=== PATIENT | female | born 1965 | race Caucasian/White ===

== ENCOUNTER → 2016-10-25 | Outpatient (CLI) | payer OTHER ==
--- NOTE | 2016-10-25 21:47 | MR ---
Brain MRI with and without contrast HISTORY: Breast cancer, headaches Multiplanar multisequence and postcontrast images through the brain following 20 cc MultiHance IV Correlation to prior MRI brain October There is no restricted diffusion to suggest subacute ischemia Corpus callosum, pituitary, cervical medullary junction, cerebellopontine angles are unremarkable. Th ere is no hemorrhage or hydrocephalus. No evident mass. No abnormal enhancement. Scattered hyperinten sities on inversion recovery and T2-weighted sequences are again noted in a similar distribution to p rior exam involving the deep and subcortical white matter. Orbits show symmetric appearance. Inflamma tory change present in the ethmoid air cells and maxillary sinus. IMPRESSION: Extensive white matter demyelination is stable. No enhancing mass to suggest metastatic d isease. Sinus disease.
== END | disposition home or self-care (01) ==
LOC: RADMRIMAIN 20:39
PROVIDERS: ATTEND Internal Medicine Hematology & Oncology
DX: C50.112 Malignant neoplasm of central portion of left female breast (principal); R51 Headache
CPT/HCPCS: 70553; A9577

== ENCOUNTER → 2017-02-20 | Outpatient (CLI) | payer OTHER ==
--- NOTE | 2017-02-20 20:33 | US ---
EXAMINATION TYPE: US abdomen complete DATE OF EXAM: 02/20/2017 COMPARISON: CT January 25, 2016 CLINICAL HISTORY: R10.11 Right upper quadrant pain. EXAM MEASUREMENTS: Liver Length: 19.2 cm Gallbladder Wall: 0.24 cm CBD: 0.40 cm Spleen: 8.7 cm Right Kidney: 10.4x 4.7 cm Left Kidney: 9.2 x 5.6 x 5.2 cm Pancreas: Tail obscured by overlying bowel gas Liver: Solid mass visualized measuring 5.7 x 4.9 x 7.0 cm. This mass is subcapsular in position an d located anteriorly within the right hepatic lobe. Gallbladder: Echogenic foci visualized. Evidence for sonographic Vazquez's sign: No CBD: wnl Spleen: wnl Right Kidney: No hydronephrosis or masses seen Left Kidney: No hydronephrosis or masses seen Upper IVC: wnl Abd Aorta: wnl IMPRESSION: ABNORMAL FINDING: LARGE SOLID LIVER MASS MEASURING 7.0 X 5.7 X 4.9 CM, WOULD ADVISE FURTHER IMAGING C HARACTERIZATION USING CT, MRI OR PET/CT.
== END ==
LOC: RADUSMAIN 16:41
PROVIDERS: ATTEND Internal Medicine Hematology & Oncology
DX: R16.0 Hepatomegaly, not elsewhere classified (principal)
CPT/HCPCS: 76700

== ENCOUNTER → 2017-04-26 | Outpatient (CLI) | payer OTHER ==
--- NOTE | 2017-04-26 15:43 | US ---
EXAMINATION TYPE: US venous doppler duplex LE LT DATE OF EXAM: 04/26/2017 3:31 PM COMPARISON: NONE CLINICAL HISTORY: Left Leg Swelling R22.42. Red spot on medial left ankle, h/o dvt in left leg 30 yea rs ago, met breast CA patient SIDE PERFORMED: Left TECHNIQUE: The lower extremity deep venous system is examined utilizing real time linear array sonog nilsa with graded compression, doppler sonography and color-flow sonography. VESSELS IMAGED: External Iliac Vein (EIV) Common Femoral Vein Deep Femoral Vein Greater Saphenous Vein * Femoral Vein Popliteal Vein Small Saphenous Vein * Proximal Calf Veins (* superficial vessels) Grayscale, color doppler, spectral doppler imaging performed of the deep veins of the lower extremit y. There is normal flow, compressibility, vascular waveforms. Left Leg: Appears negative for DVT *tech impression given to office @ 1338 IMPRESSION:
== END | disposition home or self-care (01) ==
LOC: RADUSWWP 14:59
PROVIDERS: ATTEND Internal Medicine Hematology & Oncology
DX: R22.42 Localized swelling, mass and lump, left lower limb (principal)

== ENCOUNTER → 2017-05-04 | Outpatient (CLI) | payer OTHER ==
--- NOTE | 2017-05-04 15:16 | BD ---
EXAMINATION TYPE: MG DEXA axial skeleton. DATE OF EXAM: 05/04/2017 CLINICAL HISTORY: History of breast cancer. Screening. Height: 66 inches Weight: 225 pounds FRAX RISK QUESTIONS: Alcohol (3 or more units per day): no Family History (Parent hip fracture): no Glucocorticoids (More than 3mos): no (Ex: prednisone, prednisolone, methylprednisolone, dexamethasone, and hydrocortisone). History of Fracture in Adulthood: no Secondary Osteoporosis: 1. Type 1 Diabetes: no 2. Hyperthyroidism: no 3. Menopause before 45: no, 45-chemo induced 4. Malnutrition: no 5. Chronic liver disease: no Rheumatoid Arthritis: no Current Tobacco Use: no RISK FACTORS HISTORY OF: Family History of Osteoporosis: yes Active: yes Diet low in dairy products/other sources of calcium: no Postmenopausal woman: yes Take estrogen and/or progesterone medications: not now How long: hormonal contraceptives for at least 10 years Lost more than 2 inches in height since high school: no Frequent falls: no Poor Health: somewhat Hyperparathyroidism: no Adrenal Insufficiency: no MEDICATIONS: Prednisone or other steroids: no Thyroid Medications: no Osteoporosis Medications: no Additional Medications: blood pressure meds Since 2010 took Tamoxifen, then Femara, then Ibrance, no w Afinitor Additional History: breast CA Jul 2010/chemo/radiation; mets to liver & had surgery EXAM MEASUREMENTS: Bone mineral densitometry was performed using the [employer] System. Bone mineral density as measured about the Lumbar spine is: ----- L1-L4(G/cm2): 0.977 T Score Values are as follows: ----- L2: -2.3 ----- L3: -1.9 ----- L4: -1.6 ----- L1-L4: -1.7 Bone mineral density has: Decreased -1.2% since study of: 09/16/2014 Bone mineral density about the R hip (g/cm2): 0.770 Bone mineral density about the L hip (g/cm2): 0.772 T Score values are as follows: -----R Neck: -1.9 -----L Neck: -1.9 -----R Total: -1.4 -----L Total: -1.4 Bone mineral density has: Increased 0.4% since study of: 09/16/2014 IMPRESSION: Osteopenia (T Score between -2.5 and -1) as noted by T score values There is slightly increased risk of fracture and the patient may be considered for treatment. Re-Screen 2-5 years. NOTE: T-SCORE=SD OF THE YOUNG ADULT MEAN.
== END | disposition home or self-care (01) ==
LOC: RADBDWWP 12:41
PROVIDERS: ATTEND Internal Medicine Hematology & Oncology
DX: C50.112 Malignant neoplasm of central portion of left female breast (principal); M85.80 Other specified disorders of bone density and structure, unspecified site; N95.1 Menopausal and female climacteric states; Z79.890 Hormone replacement therapy
CPT/HCPCS: 77080

== ENCOUNTER 2017-09-06 18:24 | Emergency (ER) | payer OTHER ==
[2017-09-06 18:47] VITALS: RESP 18
--- NOTE | 2017-09-06 19:02 | ED ---
Fall HPI - General Chief Complaint: Fall Stated Complaint: left arm injury from fall Time Seen by Provider: 09/06/17 18:50 Source: patient Mode of arrival: ambulatory - History of Present Illness Initial Comments: This is a 52 year old female who presents with a fall earlier today. The patient states she was walking into [employer] and fell on the cement. She broke her fall with her left wrist and left knee. She states she is unable to move her left wrist and it has become very swollen. She states her left knee had an abrasion, but she is able to walk. The patient also states she hit her nose very lightly and has a minor scrape. She denies loss of consciousness, head injury, or injury elsewhere. - Related Data Home Medications Medication Instructions Recorded Confirmed Biotin 5 mg PO DAILY 09/06/17 09/06/17 Capecitabine [Xeloda] 2,000 mg PO BID 09/06/17 09/06/17 Cyanocobalamin [Vitamin B-12 1,000 mcg SQ Q30D 09/06/17 09/06/17 Injection] Losartan [Cozaar] 50 mg PO DAILY 09/06/17 09/06/17 Venlafaxine HCl [Effexor] 150 mg PO DAILY 09/06/17 09/06/17 Previous Rx's Medication Instructions Recorded Acetaminophen-Codeine 300-30mg 1 tab PO Q4H PRN #20 tablet 09/06/17 [Tylenol #3] Allergies Allergy/AdvReac Type Severity Reaction Status Date / Time No Known Allergies Allergy Verified 09/06/17 18:49 Review of Systems ROS Statement: Those systems with pertinent positive or pertinent negative responses have been documented in the HPI. ROS Other: All systems not noted in ROS Statement are negative. Past Medical History Past Medical History: Cancer Additional Past Medical History / Comment(s): breast ca - dx 2010 mets to the liver. History of Any Multi-Drug Resistant Organisms: None Reported Past Surgical History: Breast Surgery Additional Past Surgical History / Comment(s): bilateral mastectomy - surgery, chemo, radiation - breast Ca on left side Past Anesthesia/Blood Transfusion Reactions: No Reported Reaction Past Psychological History: No Psychological Hx Reported Smoking Status: Never smoker Past Alcohol Use History: None Reported Past Drug Use History: None Reported - Past Family History Sister(s) Family Medical History: Cancer Additional Family Medical History / Comment(s): lung ca General Exam Limitations: no limitations General appearance: alert, in no apparent distress Head exam: Present: atraumatic, normocephalic, normal inspection Eye exam: Present: normal appearance, PERRL, EOMI. Absent: scleral icterus, conjunctival injection, periorbital swelling ENT exam: Present: normal oropharynx, mucous membranes moist, TM's normal bilaterally, normal external ear exam. Absent: normal exam (Nasal abrasion, no tenderness) Neck exam: Present: normal inspection, full ROM. Absent: tenderness, meningismus, lymphadenopathy Respiratory exam: Present: normal lung sounds bilaterally. Absent: respiratory distress, wheezes, rales, rhonchi, stridor Cardiovascular Exam: Present: regular rate, normal rhythm, normal heart sounds. Absent: systolic murmur, diastolic murmur, rubs, gallop, clicks Extremities exam: Present: other (Notable edema of the left wrist. Patient is unable to move her left wrist and has pain when moving fingers on her left hand. There is also an abrasion of the left knee. No tenderness to palpation of the left knee. Neurovascular remains grossly intact. ) Back exam: Present: full ROM. Absent: tenderness Neurological exam: Present: alert, oriented X3, CN II-XII intact Psychiatric exam: Present: normal affect, normal mood Skin exam: Present: warm, dry, intact, normal color. Absent: rash Course Vital Signs 09/06/17 18:39 Temperature 98.6 F Pulse Rate 83 Respiratory 18 Rate Blood Pressure 139/81 O2 Sat by Pulse 99 Oximetry Procedures - Orthopedic Splinting/Casting wrist Side: left Upper Extremity Injury Location: short arm, wrist Upper Extremity Immobilizer: volar splint, synthetic pre-padded splint Medical Decision Making - Medical Decision Making 52-year-old female presented for a fall. Patient has comminuted fracture for left wrist. Patient was placed in OCL splint. Patient will follow-up with orthopedics as she seems Dr. Avila in the past. Return parameters discussed. Disposition Clinical Impression: Fall, Knee abrasion, Wrist fracture, left Disposition: HOME SELF-CARE Condition: Stable Instructions: Wrist Fracture in Adults (ED) Additional Instructions: Please return to the Emergency Department if symptoms worsen or any other concerns. Prescriptions: Acetaminophen-Codeine 300-30mg [Tylenol #3] 1 tab PO Q4H PRN #20 tablet PRN Reason: pain Referrals: Ronal Patel DO [Primary Care Provider] - 1-2 days Kennedy Avila DO [Doctor of Osteopathic Medicine] - 1-2 days Time of Disposition: 19:52
--- NOTE | 2017-09-06 19:34 | XR ---
PROCEDURE: XR wrist complete LT, 4 views DATE AND TIME: 09/06/2017 7:16 PM REFERRING PHYSICIAN: Kennedy Bernard CLINICAL INDICATION: PHH, Pain TECHNIQUE: 4 views COMPARISON: None FINDINGS: There is a complex, comminuted minimally-displaced fracture involving the distal radius whi ch extends into the distal radioulnar joint as well as the radiocarpal joint. No other fractures. IMPRESSION: COMPLEX DISTAL RADIUS INTRA-ARTICULAR FRACTURE.
--- NOTE | 2017-09-06 19:36 | XR ---
PROCEDURE: XR hand complete LT, 3 views DATE AND TIME: 09/06/2017 7:16 PM REFERRING PHYSICIAN: Kennedy Bernard CLINICAL INDICATION: PHH, Pain TECHNIQUE: Department protocol. COMPARISON: None FINDINGS: Complex,comminuted mildly-displaced distal radius fracture is noted, entering the DRUJ as w ell as the radiocarpal joint. No other fractures. IMPRESSION: COMPLETE DISTAL RADIUS INTRA-ARTICULAR FRACTURE.
[2017-09-06] MEDS ORDERED: Acetaminophen-Codeine 300-30mg TAB PO STA (19:42)
[2017-09-06 20:09] VITALS: BP 132/80; PULSE 87; TEMP 98.7
== END 2017-09-06 19:50 | disposition home or self-care (01) ==
LOC: EC 18:24
DX: S62.102A Fracture of unspecified carpal bone, left wrist, initial encounter for closed fracture (principal); S80.212A Abrasion, left knee, initial encounter; C78.7 Secondary malignant neoplasm of liver and intrahepatic bile duct; Z79.899 Other long term (current) drug therapy; Z85.3 Personal history of malignant neoplasm of breast; Z92.21 Personal history of antineoplastic chemotherapy; Z92.3 Personal history of irradiation; Z90.13 Acquired absence of bilateral breasts and nipples; W18.09XA Striking against other object with subsequent fall, initial encounter; Y93.01 Activity, walking, marching and hiking; Y92.009 Unspecified place in unspecified non-institutional (private) residence as the place of occurrence of the external cause
CPT/HCPCS: 29125; 99283

== ENCOUNTER → 2018-05-16 | Day surgery (SDC) | payer OTHER ==
[~2018-05-16] MED LIST: ALPRAZolam 0.5 MG TAB PO STA; HYDROmorphone 1 MG/ML 1 ML SYRINGE IVP STA
[2018-05-16 09:30] VITALS: TEMP 97.8
[2018-05-16 09:37] LABS: Mean Platelet Volume 7.4; Platelet Count 285 k/uL (150-450)
[2018-05-16 10:49] VITALS: RESP 16
--- NOTE | 2018-05-16 11:40 | US ---
EXAMINATION TYPE: US biopsy liver DATE OF EXAM: 05/16/2018 HISTORY: Liver mass. FINDINGS: Maximal barrier technique was utilized. The skin overlying a suitable path to the patient' s mass was localized with ultrasound and the overlying skin prepped and draped. Ultrasound was utili zed with sterile technique. Lidocaine was used for local anesthesia. A skin liane was made with a sc alpel. An 18-gauge needle was advanced under direct ultrasound guidance and core specimen obtained o f the mass. 17-gauge needle and then advanced to the level of the mass. An 18-gauge needle was passed coaxially and 4 specimen obtained. Specimen submitted in formalin to Pathology. Following the proce dure, hemostasis achieved and the patient is discharged in stable condition without complication. IMPRESSION:STATUS POST ULTRASOUND GUIDED CORE BIOPSY OF right lobe liver MASS, PATHOLOGY IS PENDING. THIS PROCEDURE IS PERFORMED BY THE UNDERSIGNED.
[2018-05-16 13:39] VITALS: PULSE 64
[2018-05-16 14:16] VITALS: BP 126/84
== END ==
LOC: RADPROMAIN 09:02
PROVIDERS: ATTEND Internal Medicine Hematology & Oncology
DX: C78.7 Secondary malignant neoplasm of liver and intrahepatic bile duct (principal); C50.112 Malignant neoplasm of central portion of left female breast
CPT/HCPCS: 85049; 85610; 47000; 76942; J1170; 88307; 88341; 88342

== ENCOUNTER → 2018-12-05 | Outpatient (CLI) | payer OTHER ==
--- NOTE | 2018-12-05 21:13 | MR ---
EXAMINATION TYPE: MR brain wo/w con DATE OF EXAM: 12/05/2018 COMPARISON: 10/25/2016 HISTORY: Dizziness, breast ca w/mets TECHNIQUE: Multiplanar, multisequence images of the brain and brainstem is performed without and with IV contras t, utilizing 9 mL intravenous Gadavist . FINDINGS: There are numerous high signal white matter foci throughout both cerebral hemispheres. Thes e are coalescent and measure up to 1.5 cm. Portal number is more than 25. The ventricles of normal si ze. There is no mass effect nor midline shift. There is no sign of intracranial hemorrhage. The brain stem is intact. Corpus callosum appears intact. There is no evidence of a posterior fossa mass. There is normal contrast opacification of the venous sinuses. I see no pathologic enhancement of the brain . Sella turcica appears normal. IMPRESSION: Extensive white matter high signal foci predominantly at the calderón-white matter junction. I would consider both chronic small vessel ischemia and demyelinating disease. No enhancement to sugg est metastatic disease. There is not a significant progression of disease compared to old MR scan.
== END | disposition home or self-care (01) ==
LOC: RADMRIMAIN 19:24
PROVIDERS: ATTEND Nurse Practitioner Adult Health
DX: R90.89 Other abnormal findings on diagnostic imaging of central nervous system (principal); R42 Dizziness and giddiness
CPT/HCPCS: 70553; A9585

== ENCOUNTER 2018-12-13 13:29 | Emergency (ER) | payer OTHER ==
[2018-12-13] MEDS ORDERED: SODIUM CHLORIDE 0.9% 500 ML 500 ML IV STA (14:14)
--- NOTE | 2018-12-13 15:07 | XR ---
EXAMINATION TYPE: XR chest 2V DATE OF EXAM: 12/13/2018 COMPARISON: Prior chest x-ray 09/10/2010 CT 01/25/2016 HISTORY: Weakness and fall TECHNIQUE: Frontal and lateral views of the chest are obtained. FINDINGS: Right sided Port-A-Cath is present with distal tip of the catheter in the superior vena ca va. No evident pneumothorax or pleural effusion. Apical pleural thickening is irregular on the left a nd asymmetric, similar to prior CT. Heart size is within normal limits. There is elevation of the rig ht hemidiaphragm. Surgical clips present in the left axilla. IMPRESSION: No acute cardiopulmonary process. Asymmetric apical pleural thickening may be due to pos ttreatment change
[2018-12-13 15:24] LABS: Anisocytosis Slight; Basophils % (A) 1 %; Eosinophils % (A) 1 %; HCT 43.1 % (34.0-46.0); HGB 13.6 gm/dL (11.4-16.0); Lymphocytes # (A) 1.5 k/uL (1.0-4.8); Lymphocytes % (A) 32 %; MCH 28.9 pg (25.0-35.0); MCHC 31.5 g/dL (31.0-37.0); MCV 91.8 fL (80.0-100.0); Mean Platelet Volume 8.3; Monocytes # (A) 0.2 k/uL (0-1.0); Monocytes % (A) 4 %; Neutrophils # (A) 2.8 k/uL (1.3-7.7); Neutrophils % (A) 60 %; Platelet Count 246 k/uL (150-450); RBC 4.69 m/uL (3.80-5.40); WBC 4.6 k/uL (3.8-10.6)
[2018-12-13 15:39] LABS: INR 0.9 (<1.2); Prothrombin Time 9.7 sec (9.0-12.0)
[2018-12-13 15:47] LABS: Albumin 4.5 g/dL (3.5-5.0); Appearance,Urine Cloudy (Clear); Bilirubin,Urine Negative (Negative); Blood,Urine Negative (Negative); Calcium 10.1 mg/dL (8.4-10.2); Color,Urine Yellow; Glucose,Urine (UA) Negative (Negative); Ketones,Urine Negative (Negative); Leukocyte Esterase,Urine Moderate (Negative); Magnesium 2.3 mg/dL (1.6-2.3); Mucus,Urine Many /hpf; Nitrite,Urine Negative (Negative); PH, Urine 5.5 (5.0-8.0); Protein,Urine Trace (Negative); RBC,Urine 2 /hpf (0-5); Specific Gravity,Urine 1.026 (1.001-1.035); Squamous Epithelial Cell,Urine 3 /hpf (0-4); Total Bilirubin 0.7 mg/dL (0.2-1.3); Total Protein 8.6 g/dL (6.3-8.2); Urobilinogen,Urine <2.0 mg/dL (<2.0); WBC,Urine 57 /hpf (0-5)
[2018-12-13 16:09] VITALS: RESP 16
--- NOTE | 2018-12-13 17:02 | US ---
EXAMINATION TYPE: US abdomen limited DATE OF EXAM: 12/13/2018 COMPARISON: US CLINICAL HISTORY: RUQ. EC patient with history Breast CA with metastasis to liver, elevated LFT; millie ent stated fell; possible UTI and known gallstone per patient EXAM MEASUREMENTS: Liver Length: 18.6 cm Gallbladder Wall: 0.2 cm CBD: 0.5 cm Right Kidney: 9.2 x 6.1 x 4.5 cm Pancreas: uncinate process mass vs. possible lymph node adjacent to aorta seen as solid hypoechoic ov al mass = 3.1 x 2.3 x 1.7cm Liver: multiple hypoechoic and target like masses seen throughout liver Gallbladder: solitary shadowing gallstone = 1.3 x 1.5 x 0.3cm Evidence for sonographic Vazquez's sign: yes CBD: wnl Right Kidney: wnl IMPRESSION: There is a single gallstone. No dilated ducts. There was tenderness over the gallbladder. Numerous liver lesions consistent with metastatic disease. Hypoechoic pancreatic lesion suspicious fo r tumor.
--- NOTE | 2018-12-13 17:25 | ED ---
General Adult HPI - General Chief complaint: Weakness Stated complaint: weakness Time Seen by Provider: 12/13/18 14:14 Source: patient Mode of arrival: ambulatory Limitations: no limitations - History of Present Illness Initial comments: 53-year-old female presenting today for chief complaint of weakness. Patient states she has felt generalized weakness for the past 2-3 days. She states that she feels fatigued more than usual. She denies any chest pain dyspnea despite exertion. Patient denies abdominal pain fever chills night sweats. She denies any dysuria urgency frequency or hematuria. Patient denies any headache or dizziness diplopia or visual changes. Patient states she feels lightheaded at times when she is ambulate. Patient states she is unsure if this is due to glucose. States she has had decreased appetite and lost a lot of weight recently. Patient states that she was diagnosed with metastasis to liver is 13 and underwent different modes of therapy with current oral chemotherapy. Patient oncologist is Dr. Ardon. Patient states that today she felt so weak that her feet slipped from under her, luckily she was grabbing the railing she stated and she states she slipped on her heels down 2 steps and hit her "bum" slightly on the ground, denies significant trauma to the neck/back or head, denies back pain, sharp shooting pains in lower extremities she denies any weakness localized to an extremity numbness or tingling strength loss of bowel bladder control. Patient states she was not concerned about the fall she states she was more so presenting for evaluation of fatigue and weakness she was concerned she possibly had low hemoglobin level or sugar. Upon arrival pt VS stable patient appears well, no signs of acute distress. Appearing well. Pt has outpatient MRI revealing no METS to the brain. - Related Data Home Medications Medication Instructions Recorded Confirmed Abemaciclib [Verzenio] 200 mg PO BID 12/13/18 12/13/18 Omeprazole 20 mg PO DAILY 12/13/18 12/13/18 Ondansetron [Zuplenz] 8 mg PO Q6H PRN 12/13/18 12/13/18 Prochlorperazine [Compazine] 10 mg PO Q6H PRN 12/13/18 12/13/18 oxyCODONE HCL [Roxicodone] 5 mg PO Q4H PRN 12/13/18 12/13/18 oxyCODONE HCL [Roxicodone] 15 mg PO Q4H PRN 12/13/18 12/13/18 Previous Rx's Medication Instructions Recorded Cephalexin [Keflex] 500 mg PO Q12HR 7 Days #14 cap 12/13/18 Allergies Allergy/AdvReac Type Severity Reaction Status Date / Time No Known Allergies Allergy Verified 12/13/18 13:58 Review of Systems ROS Statement: Those systems with pertinent positive or pertinent negative responses have been documented in the HPI. ROS Other: All systems not noted in ROS Statement are negative. Past Medical History Past Medical History: Cancer, Thyroid Disorder Additional Past Medical History / Comment(s): breast ca - dx 2009 mets to the liver. confirmed by liver biopsy 2014 since then the mass has grown 3x. History of Any Multi-Drug Resistant Organisms: None Reported Past Surgical History: Breast Surgery Additional Past Surgical History / Comment(s): bilateral mastectomy - surgery, chemo, radiation - breast Ca on left side Past Anesthesia/Blood Transfusion Reactions: No Reported Reaction Past Psychological History: No Psychological Hx Reported Smoking Status: Never smoker Past Alcohol Use History: None Reported Past Drug Use History: None Reported - Past Family History Sister(s) Family Medical History: Cancer Additional Family Medical History / Comment(s): lung ca General Exam - General Exam Comments Initial Comments: General: The patient is awake and alert, in no distress, and does not appear acutely ill. Eye: +3 mm pupils are equal, round and reactive to light, extra-ocular movements are intact. No nystagmus. There is normal conjunctiva bilaterally. No signs of icterus. Ears, nose, mouth and throat: There are moist mucous membranes and no oral lesions. Neck: The neck is supple, there is no tenderness or JVD. Cardiovascular: There is a regular rate and rhythm. No murmur, rub or gallop is appreciated. Respiratory: Lungs are clear to auscultation, respirations are non-labored, breath sounds are equal. No wheezes, stridor, rales, or rhonchi. Gastrointestinal: Soft, non-distended, non-tender abdomen the lower abdomen without masses or organomegaly noted. There is no rebound or guarding present. No CVA tenderness. Bowel sounds are unremarkable. (-) [place] sign, however mild discomfort of the RUQ-no rigidity no guarding Musculoskeletal: Normal ROM, no tenderness. Strength 5/5 of the LE b/l. Sensation intact of the LE. (-) SLR b/l. Radial and DP pulses equal bilaterally 2+. Neurological: A&O x 3. CN II-XII intact, There are no obvious motor or sensory deficits. Coordination appears grossly intact. Speech is normal. Skin: Skin is warm and dry and no rashes or lesions are noted. No LE swelling. Psychiatric: Cooperative, appropriate mood & affect, normal judgment. Limitations: no limitations Course Vital Signs 12/13/18 12/13/18 12/13/18 13:39 16:08 18:59 Temperature 97.6 F 98.2 F Pulse Rate 86 74 78 Respiratory 20 16 16 Rate Blood Pressure 127/85 135/87 137/77 O2 Sat by Pulse 97 98 98 Oximetry EKG Findings - EKG Comments: EKG Findings:: A 12-lead EKG was performed and shows the following: Rate is 78bpm, and rhythm is normal sinus. There are normal QRS complexes and normal R- wave progression. ST segments have no elevation or depression, and IN segments appear normal. IN interval 126 seconds, QRS ration 68 ms, QT/QTC 382/435 ms. Medical Decision Making - Medical Decision Making 53-year-old female presented for generalized weakness. Patient did have a fall today. Denies any pain. Patient has no deficits on examination. No midline tenderness. Pt has no focal neurological deficits. EKG no acute findings. Troponin (-). HR WNL .No leg swelling. Patient has relatively benign abdominal exam there is mild tenderness to the right upper quadrant, I do not palpate a positive Vazquez sign. Patient is no evidence of jaundice. Laboratory studies revealed increased liver enzymes alk phosphatase. This is more consistent patient's metastasis. Patient does state she has history of gallstones, we did obtain L Vince revealed gallstones no obstructing stones or dilated ducts. Nonspecific adamantly noted of the pancreas, this finding is discussed with patient I recommended outpatient follow-up with her oncologist. Patient states she has a PET scan in 2-4 weeks. I did discuss this finding with nurse of Dr. Ardon that was in the room with patient. Patient was given option of admission for IV hydration and IV antibiotics for treatment of urinary tract infection. Patient refused stating she would like to go home. Patient was evaluated in person by attending provider Dr. Abdul. He states that patient is comfortable going home she can follow up outpatient with Dr. Ardon, returning for worsening symptoms. Pt states she will go home with her daughter and return for any concerning symptoms stating she is feeling much better. At this time given patient has close follow-up rescheduled for Monday with Dr. Ardon, kane sextonovmanolo of fatigue/weakness, steady gait with ambulation that patient is stable for d/c with strict return parameters. Patient given a prescription for Keflex. - Lab Data Result diagrams: 12/13/18 15:10 12/13/18 15:10 Lab Results 12/13/18 12/13/18 12/13/18 Range/Units 15:10 15:10 15:10 WBC 4.6 (3.8-10.6) k/uL RBC 4.69 (3.80-5.40) m/uL Hgb 13.6 (11.4-16.0) gm/dL Hct 43.1 (34.0-46.0) % MCV 91.8 (80.0-100.0) fL MCH 28.9 (25.0-35.0) pg MCHC 31.5 (31.0-37.0) g/dL RDW 17.0 H (11.5-15.5) % Plt Count 246 (150-450) k/uL Neutrophils % 60 % Lymphocytes % 32 % Monocytes % 4 % Eosinophils % 1 % Basophils % 1 % Neutrophils # 2.8 (1.3-7.7) k/uL Lymphocytes # 1.5 (1.0-4.8) k/uL Monocytes # 0.2 (0-1.0) k/uL Eosinophils # 0.0 (0-0.7) k/uL Basophils # 0.0 (0-0.2) k/uL Anisocytosis Slight PT (9.0-12.0) sec INR (<1.2) APTT (22.0-30.0) sec Sodium 141 (137-145) mmol/L Potassium 4.0 (3.5-5.1) mmol/L Chloride 105 (98-107) mmol/L Carbon Dioxide 26 (22-30) mmol/L Anion Gap 10 mmol/L BUN 21 H (7-17) mg/dL Creatinine 1.02 (0.52-1.04) mg/dL Est GFR (CKD-EPI)AfAm 72 (>60 ml/min/1.73 sqM) Est GFR (CKD-EPI)NonAf 63 (>60 ml/min/1.73 sqM) Glucose 96 (74-99) mg/dL Plasma Lactic Acid Vance 1.3 (0.7-2.0) mmol/L Calcium 10.1 (8.4-10.2) mg/dL Magnesium 2.3 (1.6-2.3) mg/dL Total Bilirubin 0.7 (0.2-1.3) mg/dL AST 155 H (14-36) U/L ALT 121 H (9-52) U/L Alkaline Phosphatase 704 H (38-126) U/L Troponin I (0.000-0.034) ng/mL Total Protein 8.6 H (6.3-8.2) g/dL Albumin 4.5 (3.5-5.0) g/dL Urine Color Urine Appearance (Clear) Urine pH (5.0-8.0) Ur Specific [place] (1.001-1.035) Urine Protein (Negative) Urine Glucose (UA) (Negative) Urine Ketones (Negative) Urine Blood (Negative) Urine Nitrite (Negative) Urine Bilirubin (Negative) Urine Urobilinogen (<2.0) mg/dL Ur Leukocyte Esterase (Negative) Urine RBC (0-5) /hpf Urine WBC (0-5) /hpf Ur Squamous Epith Cells (0-4) /hpf Urine Mucus (None) /hpf 12/13/18 12/13/18 12/13/18 Range/Units 15:10 15:10 15:10 WBC (3.8-10.6) k/uL RBC (3.80-5.40) m/uL Hgb (11.4-16.0) gm/dL Hct (34.0-46.0) % MCV (80.0-100.0) fL MCH (25.0-35.0) pg MCHC (31.0-37.0) g/dL RDW (11.5-15.5) % Plt Count (150-450) k/uL Neutrophils % % Lymphocytes % % Monocytes % % Eosinophils % % Basophils % % Neutrophils # (1.3-7.7) k/uL Lymphocytes # (1.0-4.8) k/uL Monocytes # (0-1.0) k/uL Eosinophils # (0-0.7) k/uL Basophils # (0-0.2) k/uL Anisocytosis PT 9.7 (9.0-12.0) sec INR 0.9 (<1.2) APTT 22.0 (22.0-30.0) sec Sodium (137-145) mmol/L Potassium (3.5-5.1) mmol/L Chloride (98-107) mmol/L Carbon Dioxide (22-30) mmol/L Anion Gap mmol/L BUN (7-17) mg/dL Creatinine (0.52-1.04) mg/dL Est GFR (CKD-EPI)AfAm (>60 ml/min/1.73 sqM) Est GFR (CKD-EPI)NonAf (>60 ml/min/1.73 sqM) Glucose (74-99) mg/dL Plasma Lactic Acid Vance (0.7-2.0) mmol/L Calcium (8.4-10.2) mg/dL Magnesium (1.6-2.3) mg/dL Total Bilirubin (0.2-1.3) mg/dL AST (14-36) U/L ALT (9-52) U/L Alkaline Phosphatase (38-126) U/L Troponin I <0.012 (0.000-0.034) ng/mL Total Protein (6.3-8.2) g/dL Albumin (3.5-5.0) g/dL Urine Color Yellow Urine Appearance Cloudy H (Clear) Urine pH 5.5 (5.0-8.0) Ur Specific [place] 1.026 (1.001-1.035) Urine Protein Trace H (Negative) Urine Glucose (UA) Negative (Negative) Urine Ketones Negative (Negative) Urine Blood Negative (Negative) Urine Nitrite Negative (Negative) Urine Bilirubin Negative (Negative) Urine Urobilinogen <2.0 (<2.0) mg/dL Ur Leukocyte Esterase Moderate H (Negative) Urine RBC 2 (0-5) /hpf Urine WBC 57 H (0-5) /hpf Ur Squamous Epith Cells 3 (0-4) /hpf Urine Mucus Many H (None) /hpf Disposition Clinical Impression: Generalized weakness, UTI (urinary tract infection) Disposition: HOME SELF-CARE Condition: Good Instructions (If sedation given, give patient instructions): Weakness (ED) Additional Instructions: Please use medication as discussed. Please follow-up with Dr. Ardon Monday, please return as discussed if symptoms worsen or change. Please return to emergency room if the symptoms increase or worsen or for any other concerns. Prescriptions: Cephalexin [Keflex] 500 mg PO Q12HR 7 Days #14 cap Is patient prescribed a controlled substance at d/c from ED?: No Referrals: Ronal Patel DO [Primary Care Provider] - 1-2 days Time of Disposition: 18:20
[2018-12-13 19:00] VITALS: BP 137/77; PULSE 78; TEMP 98.2
== END 2018-12-13 18:59 | disposition home or self-care (01) ==
LOC: EC 13:29
DX: N39.0 Urinary tract infection, site not specified (principal); K80.20 Calculus of gallbladder without cholecystitis without obstruction; C78.7 Secondary malignant neoplasm of liver and intrahepatic bile duct; E07.9 Disorder of thyroid, unspecified; Z79.899 Other long term (current) drug therapy; Z85.3 Personal history of malignant neoplasm of breast; Z90.13 Acquired absence of bilateral breasts and nipples; Z92.3 Personal history of irradiation
CPT/HCPCS: 36415; 93005; 80053; 83605; 83735; 84484; 85025; 85610; 85730; 81001; 87086; 71046; 76705; 99285; 96365; 96361; J0696

== ENCOUNTER → 2019-04-02 | Outpatient (CLI) | payer OTHER ==
--- NOTE | 2019-04-02 11:01 | US ---
EXAMINATION TYPE: US venous doppler duplex LE DATE OF EXAM: 04/02/2019 10:44 AM COMPARISON: NONE CLINICAL HISTORY: 53-year-old female I26.99 pulmonary [id number], R22.41 swelling. Edema bilatera l legs for 1 month. Pain left calf. History of PE, diagnosed 03/29/19. Patient on blood thinner SIDE PERFORMED: Bilateral TECHNIQUE: The lower extremity deep venous system is examined utilizing real time linear array sonog nilsa with graded compression, doppler sonography and color-flow sonography. VESSELS IMAGED: External Iliac Vein (EIV) Common Femoral Vein Deep Femoral Vein Greater Saphenous Vein * Femoral Vein Popliteal Vein Small Saphenous Vein * Proximal Calf Veins (* superficial vessels) Right Leg: No evidence of DVT Left Leg: no compression or blood flow noted left PTV IMPRESSION: 1. No evidence for DVT within the right lower extremity imaged from the groin to the upper calves. 2. Unable to demonstrate compressibility or blood flow within the left posterior tibial veins. Findin gs suggest DVT at this level.
== END | disposition home or self-care (01) ==
LOC: RADUSWWP 10:04
PROVIDERS: ATTEND Internal Medicine Hematology & Oncology
DX: R22.41 Localized swelling, mass and lump, right lower limb (principal); R22.42 Localized swelling, mass and lump, left lower limb
CPT/HCPCS: 93970

== ENCOUNTER 2019-10-20 19:22 | Inpatient (IN) | payer OTHER ==
[2019-10-20] MEDS ORDERED: cefTRIAXone IN SWFI 1,000 MG/10 ML SYRINGE IVP STA (20:13)
[2019-10-20 20:28] LABS: ALT 76 U/L (4-34); AST 95 U/L (14-36); African American GFR (CKD) >90 (>60 ml/min/1.73 sqM); Albumin 4.3 g/dL (3.5-5.0); Alkaline Phosphatase 365 U/L (38-126); Anion Gap 9 mmol/L; Blood Urea Nitrogen 11 mg/dL (7-17); Calcium 9.3 mg/dL (8.4-10.2); Carbon Dioxide 27 mmol/L (22-30); Chloride 99 mmol/L (98-107); Glucose 93 mg/dL (74-99); Non-African American GFR(CKD) >90 (>60 ml/min/1.73 sqM); Sodium 135 mmol/L (137-145); Total Bilirubin 0.7 mg/dL (0.2-1.3); Total Protein 7.4 g/dL (6.3-8.2)
[2019-10-20] MEDS: SODIUM CHLORIDE 0.9% 500 ML 500 ML IV SCH ×2 (20:34→20:35)
[2019-10-20 20:37] LABS: Anisocytosis Slight; Basophils % (A) 1 %; Eosinophils % (A) 1 %; HCT 39.9 % (34.0-46.0); HGB 12.5 gm/dL (11.4-16.0); Lymphocytes # (A) 0.5 k/uL (1.0-4.8); Lymphocytes % (A) 16 %; MCH 28.4 pg (25.0-35.0); MCHC 31.2 g/dL (31.0-37.0); MCV 90.9 fL (80.0-100.0); Mean Platelet Volume 8.8; Monocytes # (A) 0.1 k/uL (0-1.0); Monocytes % (A) 4 %; Neutrophils # (A) 2.1 k/uL (1.3-7.7); Neutrophils % (A) 76 %; Platelet Count 275 k/uL (150-450); RBC 4.39 m/uL (3.80-5.40); RDW 17.2 % (11.5-15.5); WBC 2.8 k/uL (3.8-10.6)
[2019-10-20 20:39] LABS: Appearance,Urine Cloudy (Clear); Bacteria,Urine Occasional /hpf; Bilirubin,Urine Negative (Negative); Blood,Urine Negative (Negative); Color,Urine Yellow; Glucose,Urine (UA) Negative (Negative); Hyaline Casts,Urine 1 /lpf (0-2); Ketones,Urine Negative (Negative); Leukocyte Esterase,Urine Small (Negative); Mucus,Urine Many /hpf; Nitrite,Urine Negative (Negative); PH, Urine 5.5 (5.0-8.0); Protein,Urine Trace (Negative); RBC,Urine 2 /hpf (0-5); Specific Gravity,Urine 1.027 (1.001-1.035); Squamous Epithelial Cell,Urine 5 /hpf (0-4); Urobilinogen,Urine <2.0 mg/dL (<2.0); WBC,Urine 7 /hpf (0-5)
--- NOTE | 2019-10-20 20:41 | XR ---
EXAMINATION TYPE: XR chest 2V DATE OF EXAM: 10/20/2019 COMPARISON: December 13, 2018 HISTORY: Weakness TECHNIQUE: FINDINGS: Heart and mediastinum are normal. There is some increased density that appears to be in the anterior right middle lobe. The other lung mckin[place] are clear. There are no hilar masses. There are ch est leads. There is right central venous catheter with the tip in the superior vena cava. There is no pleural effusion. IMPRESSION: There is probably some anterior right middle lobe infiltrate unchanged. Normal heart.
[2019-10-20 20:45] LABS: INR 0.9 (<1.2); Partial Thromboplastin Time 25.1 sec (22.0-30.0); Prothrombin Time 9.7 sec (9.0-12.0)
[2019-10-20] MEDS ORDERED: PIPERACILLIN-TAZOBACTAM 3.375 GM in SODIUM CHLORIDE 0.9% 100 ML IVPB ONE (21:48)
--- NOTE | 2019-10-20 21:48 | ED ---
Fever HPI - General Source: patient Mode of arrival: ambulatory Limitations: no limitations <Melinda Roper - Last Filed: 10/20/19 23:46> <Ruiz Salas - Last Filed: 11/05/19 07:19> - General Chief Complaint: Fever Stated Complaint: Fever-Chemo pt Time Seen by Provider: 10/20/19 19:41 - History of Present Illness Initial Comments: 54-year-old female who is currently on chemotherapy infusions presents emergency department today for chief complaint of fever or cough congestion sore throat or patient states that Monday she has had these symptoms. Patient contacted her oncologist who stated for fevers over 101 Fahrenheit she is to present to the emergency department. Patient states fever reached 101.2 this evening and she took Motrin then presented emergency department for further evaluation. Patient denies any chest pain shortness of breath and leg swelling. She denies any nausea vomiting diarrhea or rashes. Patient denies any associated symptoms. At this time she appears nontoxic. VS within acceptable limits. (Melinda Roper) - Related Data Home Medications Medication Instructions Recorded Confirmed ALPRAZolam [Xanax] 0.5 mg PO TID PRN 10/21/19 10/21/19 Apixaban [Eliquis] 5 mg PO BID 10/21/19 10/21/19 HYDROcodone/APAP 7.5-325MG [[place] 1 tab PO Q4H PRN 10/21/19 10/21/19 7.5-325] Ibuprofen [Motrin Ib] 600 mg PO Q6H PRN 10/21/19 10/21/19 Ondansetron Odt [Zofran ODT] 8 mg PO Q8HR PRN 10/21/19 10/21/19 Pregabalin 75 mg PO BID 10/21/19 10/21/19 Previous Rx's Medication Instructions Recorded Amoxicillin/Potassium Clav 1 tab PO Q12HR #10 tab 10/22/19 [Augmentin 875-125 Tablet] Loratadine-Pseudoeph 5-120 mg 1 each PO Q12HR #10 tab.er.12h 10/22/19 [Claritin-D 12 Hour] Oseltamivir [Tamiflu] 75 mg PO Q12HR #10 cap 10/22/19 Allergies Allergy/AdvReac Type Severity Reaction Status Date / Time No Known Allergies Allergy Verified 10/21/19 10:35 Review of Systems ROS Other: All systems not noted in ROS Statement are negative. <Melinda Roper - Last Filed: 10/20/19 23:46> ROS Other: All systems not noted in ROS Statement are negative. <Ruiz Salas - Last Filed: 11/05/19 07:19> ROS Statement: Those systems with pertinent positive or pertinent negative responses have been documented in the HPI. Past Medical History Past Medical History: Cancer, Thyroid Disorder Additional Past Medical History / Comment(s): breast ca - dx 2009 mets to the l iver. confirmed by liver biopsy 2015 since then the mass has grown 3x. History of Any Multi-Drug Resistant Organisms: None Reported Past Surgical History: Breast Surgery Additional Past Surgical History / Comment(s): bilateral mastectomy - surgery, chemo, radiation - breast Ca on left side Past Anesthesia/Blood Transfusion Reactions: No Reported Reaction Past Psychological History: No Psychological Hx Reported Smoking Status: Never smoker Past Alcohol Use History: None Reported Past Drug Use History: None Reported - Past Family History Sister(s) Family Medical History: Cancer Additional Family Medical History / Comment(s): lung ca <Melinda Roper - Last Filed: 10/20/19 23:46> General Exam Limitations: no limitations <Melinda Roper - Last Filed: 10/20/19 23:46> - General Exam Comments Initial Comments: General: The patient is awake and alert, in no distress Eye: +3 mm pupils are equal, round and reactive to light, extra-ocular movements are intact. No nystagmus. There is normal conjunctiva bilaterally. No signs of icterus. No photophobia Ears, nose, mouth and throat: There are moist mucous membranes and no oral lesions. Oropharynx was not erythematous there is no tonsillar enlargement exudates or lesions. Uvula midline. Tympanic membranes are not erythematous or is no effusions bulging or retraction. No tenderness to palpation of the mastoid. No anterior cervical lymphadenopathy. Rhinorrhea, clear and bilateral nares. No tripoding, no drooling. Neck: The neck is supple, there is no tenderness or JVD. No nuchal rigidity Cardiovascular: There is a regular rate and rhythm. No murmur, rub or gallop is appreciated. Respiratory: Lungs are clear to auscultation, respirations are non-labored, breath sounds are equal. No wheezes, stridor, rales, or rhonchi. No retractions or abdominal breathing. Gastrointestinal: Soft, non-distended, non-tender abdomen without masses or organomegaly noted. There is no rebound or guarding present. Bowel sounds are unremarkable. Musculoskeletal: Normal ROM, no tenderness. Strength 5/5. Sensation intact. Radial pulses equal bilaterally 2+. Neurological: A&O x 3. CN II-XII intact grosly, There are no obvious motor or sensory deficits. Coordination appears grossly intact. Speech appears normal, no muffling. Skin: Skin is warm and dry and no rashes or lesions are noted. No extremity edema Psychiatric: Cooperative (Melinda Roper) Course Vital Signs 10/20/19 10/20/19 10/20/19 19:36 21:00 21:50 Temperature 99.4 F Pulse Rate 101 H 85 Pulse Rate [ Left] Respiratory 22 16 Rate Blood Pressure 147/79 124/76 O2 Sat by Pulse 97 99 96 Oximetry 10/20/19 10/21/19 22:26 00:00 Temperature Pulse Rate 89 Pulse Rate [ 100 Left] Respiratory 16 16 Rate Blood Pressure 137/86 O2 Sat by Pulse 99 Oximetry Medical Decision Making - Lab Data Result diagrams: 10/20/19 20:00 10/20/19 20:00 <Melinda Roper - Last Filed: 10/20/19 23:46> - Lab Data Result diagrams: 10/20/19 20:00 10/22/19 07:30 <Ruiz Salas - Last Filed: 11/05/19 07:19> - Medical Decision Making 54-year-old female currently on chemotherapy present to the ER today for chief complaint of sore throat fever cough. Influenza A positive. However she is found to have a focal infiltrate of the right middle lobe. Given patient's history of immune compromise at this time I feel this more appropriate that she is admitted for IV antibiotics for pneumonia although most likely this is viral. Patient is agreeable to admission. I discussed the case with her provider Dr. salas who is agreeable to admission with treatment for HCAP. Patient tr ansferred to the floor nontoxic, does not appear septic at this time, no respiratory distress. (Kinter,Melinda L) I saw this patient in conjunction with the physician trading assistant. I performed independent history and physical exam. Agree with case management. ([facility] - Lab Data Lab Results 10/20/19 10/20/19 10/20/19 Range/Units 20:00 20:00 20:00 WBC 2.8 L (3.8-10.6) k/uL RBC 4.39 (3.80-5.40) m/uL Hgb 12.5 (11.4-16.0) gm/dL Hct 39.9 (34.0-46.0) % MCV 90.9 (80.0-100.0) fL MCH 28.4 (25.0-35.0) pg MCHC 31.2 (31.0-37.0) g/dL RDW 17.2 H (11.5-15.5) % Plt Count 275 (150-450) k/uL Neutrophils % 76 % Lymphocytes % 16 % Monocytes % 4 % Eosinophils % 1 % Basophils % 1 % Neutrophils # 2.1 (1.3-7.7) k/uL Lymphocytes # 0.5 L (1.0-4.8) k/uL Monocytes # 0.1 (0-1.0) k/uL Eosinophils # 0.0 (0-0.7) k/uL Basophils # 0.0 (0-0.2) k/uL Anisocytosis Slight PT 9.7 (9.0-12.0) sec INR 0.9 (<1.2) APTT 25.1 (22.0-30.0) sec Sodium (137-145) mmol/L Potassium (3.5-5.1) mmol/L Chloride (98-107) mmol/L Carbon Dioxide (22-30) mmol/L Anion Gap mmol/L BUN (7-17) mg/dL Creatinine (0.52-1.04) mg/dL Est GFR (CKD-EPI)AfAm (>60 ml/min/1.73 sqM) Est GFR (CKD-EPI)NonAf (>60 ml/min/1.73 sqM) Glucose (74-99) mg/dL Plasma Lactic Acid Vance (0.7-2.0) mmol/L Calcium (8.4-10.2) mg/dL Total Bilirubin (0.2-1.3) mg/dL AST (14-36) U/L ALT (4-34) U/L Alkaline Phosphatase (38-126) U/L Total Protein (6.3-8.2) g/dL Albumin (3.5-5.0) g/dL Urine Color Yellow Urine Appearance Cloudy H (Clear) Urine pH 5.5 (5.0-8.0) Ur Specific [place] 1.027 (1.001-1.035) Urine Protein Trace H (Negative) Urine Glucose (UA) Negative (Negative) Urine Ketones Negative (Negative) Urine Blood Negative (Negative) Urine Nitrite Negative (Negative) Urine Bilirubin Negative (Negative) Urine Urobilinogen <2.0 (<2.0) mg/dL Ur Leukocyte Esterase Small H (Negative) Urine RBC 2 (0-5) /hpf Urine WBC 7 H (0-5) /hpf Ur Squamous Epith Cells 5 H (0-4) /hpf Urine Bacteria Occasional H (None) /hpf Hyaline Casts 1 (0-2) /lpf Urine Mucus Many H (None) /hpf Influenza Type A RNA (Not Detectd) Influenza Type B (PCR) (Not Detectd) 10/20/19 10/20/19 10/20/19 Range/Units 20:00 20:00 20:00 WBC (3.8-10.6) k/uL RBC (3.80-5.40) m/uL Hgb (11.4-16.0) gm/dL Hct (34.0-46.0) % MCV (80.0-100.0) fL MCH (25.0-35.0) pg MCHC (31.0-37.0) g/dL RDW (11.5-15.5) % Plt Count (150-450) k/uL Neutrophils % % Lymphocytes % % Monocytes % % Eosinophils % % Basophils % % Neutrophils # (1.3-7.7) k/uL Lymphocytes # (1.0-4.8) k/uL Monocytes # (0-1.0) k/uL Eosinophils # (0-0.7) k/uL Basophils # (0-0.2) k/uL Anisocytosis PT (9.0-12.0) sec INR (<1.2) APTT (22.0-30.0) sec Sodium 135 L (137-145) mmol/L Potassium 4.0 (3.5-5.1) mmol/L Chloride 99 (98-107) mmol/L Carbon Dioxide 27 (22-30) mmol/L Anion Gap 9 mmol/L BUN 11 (7-17) mg/dL Creatinine 0.62 (0.52-1.04) mg/dL Est GFR (CKD-EPI)AfAm >90 (>60 ml/min/1.73 sqM) Est GFR (CKD-EPI)NonAf >90 (>60 ml/min/1.73 sqM) Glucose 93 (74-99) mg/dL Plasma Lactic Acid Vance 1.4 (0.7-2.0) mmol/L Calcium 9.3 (8.4-10.2) mg/dL Total Bilirubin 0.7 (0.2-1.3) mg/dL AST 95 H (14-36) U/L ALT 76 H (4-34) U/L Alkaline Phosphatase 365 H (38-126) U/L Total Protein 7.4 (6.3-8.2) g/dL Albumin 4.3 (3.5-5.0) g/dL Urine Color Urine Appearance (Clear) Urine pH (5.0-8.0) Ur Specific [place] (1.001-1.035) Urine Protein (Negative) Urine Glucose (UA) (Negative) Urine Ketones (Negative) Urine Blood (Negative) Urine Nitrite (Negative) Urine Bilirubin (Negative) Urine Urobilinogen (<2.0) mg/dL Ur Leukocyte Esterase (Negative) Urine RBC (0-5) /hpf Urine WBC (0-5) /hpf Ur Squamous Epith Cells (0-4) /hpf Urine Bacteria (None) /hpf Hyaline Casts (0-2) /lpf Urine Mucus (None) /hpf Influenza Type A RNA Detected H (Not Detectd) Influenza Type B (PCR) Not Detected (Not Detectd) 10/22/19 Range/Units 07:30 WBC (3.8-10.6) k/uL RBC (3.80-5.40) m/uL Hgb (11.4-16.0) gm/dL Hct (34.0-46.0) % MCV (80.0-100.0) fL MCH (25.0-35.0) pg MCHC (31.0-37.0) g/dL RDW (11.5-15.5) % Plt Count (150-450) k/uL Neutrophils % % Lymphocytes % % Monocytes % % Eosinophils % % Basophils % % Neutrophils # (1.3-7.7) k/uL Lymphocytes # (1.0-4.8) k/uL Monocytes # (0-1.0) k/uL Eosinophils # (0-0.7) k/uL Basophils # (0-0.2) k/uL Anisocytosis PT (9.0-12.0) sec INR (<1.2) APTT (22.0-30.0) sec Sodium (137-145) mmol/L Potassium (3.5-5.1) mmol/L Chloride (98-107) mmol/L Carbon Dioxide (22-30) mmol/L Anion Gap mmol/L BUN (7-17) mg/dL Creatinine 0.53 (0.52-1.04) mg/dL Est GFR (CKD-EPI)AfAm >90 (>60 ml/min/1.73 sqM) Est GFR (CKD-EPI)NonAf >90 (>60 ml/min/1.73 sqM) Glucose (74-99) mg/dL Plasma Lactic Acid Vance (0.7-2.0) mmol/L Calcium (8.4-10.2) mg/dL Total Bilirubin (0.2-1.3) mg/dL AST (14-36) U/L ALT (4-34) U/L Alkaline Phosphatase (38-126) U/L Total Protein (6.3-8.2) g/dL Albumin (3.5-5.0) g/dL Urine Color Urine Appearance (Clear) Urine pH (5.0-8.0) Ur Specific [place] (1.001-1.035) Urine Protein (Negative) Urine Glucose (UA) (Negative) Urine Ketones (Negative) Urine Blood (Negative) Urine Nitrite (Negative) Urine Bilirubin (Negative) Urine Urobilinogen (<2.0) mg/dL Ur Leukocyte Esterase (Negative) Urine RBC (0-5) /hpf Urine WBC (0-5) /hpf Ur Squamous Epith Cells (0-4) /hpf Urine Bacteria (None) /hpf Hyaline Casts (0-2) /lpf Urine Mucus (None) /hpf Influenza Type A RNA (Not Detectd) Influenza Type B (PCR) (Not Detectd) Disposition Is patient prescribed a controlled substance at d/c from ED?: No Time of Disposition: 21:48 Decision to Admit Reason: Admit from EC Decision Date: 10/20/19 Decision Time: 21:48 <Melinda Roper - Last Filed: 10/20/19 23:46> <Ruiz Salas - Last Filed: 11/05/19 07:19> Clinical Impression: Fever, Right middle lobe pneumonia, Influenza A Disposition: ADMITTED IP TO THIS HOSP Condition: Stable
[2019-10-20] MEDS ORDERED: VANCOMYCIN IV PER PHARMACY 1 EACH MISC MISCELLANE PRN (21:49)
[2019-10-20] MEDS ORDERED: PNEUMONIA PROTOCOL UTILIZED 1 EACH MISC PO PRN (21:49)
[2019-10-20] MEDS ORDERED: CIPROFLOXACIN/DEXTROSE PMX 400 MG in DEXTROSE/WATER 1 200ML.BAG IVPB ONE (22:00)
[2019-10-20] MEDS: OSELTAMIVIR 75 MG CAP PO SCH (22:20)
[2019-10-20] MEDS: SODIUM CHLORIDE 0.9% 1,000 ML IV SCH (22:20)
[2019-10-20] MEDS ORDERED: VANCOMYCIN 1,750 MG in SODIUM CHLORIDE 0.9% 500 ML 500 ML IVPB ONE (23:00)
[2019-10-20] MEDS ORDERED: MORPHINE SULFATE 4 MG/ML SYRINGE IVP PRN (23:45)
[2019-10-20] MEDS ORDERED: ACETAMINOPHEN TAB 325 MG TAB PO PRN (23:45)
--- NOTE | 2019-10-21 08:28 | XR ---
EXAMINATION TYPE: XR chest 2V DATE OF EXAM: 10/21/2019 COMPARISON: 10/20/[address] 01/25/2016 HISTORY: 54-year-old female with pneumonia TECHNIQUE: PA and lateral views FINDINGS: Right anterior chest wall injection port with catheter tip at the lower SVC. Heart normal size. Aorta and pulmonary vasculature within normal limits. Biapical pleural-parenchymal scarring. Focal opacity right infrahilar region seems to correspond to chronic nodularity when compared to CT of 01/25/2016. Consider nonemergent CT chest follow-up to determine any changes from that time. Some strandy atelect asis in the lower lungs. No consolidation or pleural effusion otherwise seen. Surgical clips in the l eft axilla. IMPRESSION: 1. Focal right infrahilar opacity seems to correspond to chronic nodularity seen on CT of 01/25/2016. Nonemergent contrast-enhanced CT chest follow-up can determine any changes from that time. 2. Otherwise, no acute process seen.
[2019-10-21] MEDS: OSELTAMIVIR 75 MG CAP PO SCH ×2 (09:22→22:12)
[2019-10-21] MEDS: SODIUM CHLORIDE 0.9% 1,000 ML IV SCH ×3 (09:32→22:12)
[2019-10-21] MEDS ORDERED: ALPRAZolam 0.5 MG TAB PO PRN (11:30)
[2019-10-21] MEDS ORDERED: IBUPROFEN 600 MG TAB PO PRN (11:30)
[2019-10-21] MEDS ORDERED: ONDANSETRON ODT 8 MG TAB.RAPDIS PO PRN (11:30)
[2019-10-21] MEDS: APIXABAN 5 MG TAB PO SCH ×2 (11:55→21:58)
[2019-10-21] MEDS: PREGABALIN 75 MG CAP PO SCH ×2 (11:55→21:58)
[2019-10-21] MEDS: VANCOMYCIN 1,750 MG in SODIUM CHLORIDE 0.9% 500 ML 500 ML IVPB SCH (12:50)
--- NOTE | 2019-10-21 14:43 | P.HPIM ---
History of Present Illness H&P Date: 10/21/19 Chief Complaint: Fever congestion History of presenting complaint: This is a very pleasant 54-year-old patient of . Patient has been diagnosed with breast cancer with bilateral mastectomy. She has received surgery, radiation treatment and gets chemotherapy every month. She gets it for 3 weeks then she is off for a week. She's been followed by Dr. Carlin. Abdulkadir pedro's chronic stable medical conditions include anxiety, peripheral neuropathy, and has got chronic problem embolism 6 months ago for which she is on atelectasis. About 3 days ago patient started up in off congestion. Some clear sputum and a fever up to 1.2. Feels a bit tired. No change in bowel habits. Has been eating okay, just very congested, no achiness in the muscles. Presented to the ER. Tested positive for fluid. Started on Tamiflu Review of systems: GEN.: Fever EYES: None HEENT: None NECK: None RESPIRATORY: As above CARDIOVASCULAR: None GASTROINTESTINAL: None GENITOURINARY: None MUSCULOSKELETAL: None LYMPHATICS: None HEMATOLOGICAL: None PSYCHIATRY: None NEUROLOGICAL: None. 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 Physical examination: VITAL SIGNS: T-max 101.1, pulse 100, 16, 141/90, 97% on room air GENERAL: BMI 30.8, laying in bed, tired, sounding congested. EYES: Pupils equal. Conjunctiva normal. HEENT: External appearance of nose and ears normal, oral cavity grossly normal. NECK: JVD not raised; masses not palpable. HEART: First and second heart sounds are normal; no edema. LUNGS: Respiratory rate increased, some expiratory crackles. ABDOMEN: Soft, nontender, liver spleen not palpable, no masses palpable. PSYCH: Alert and oriented x3; mood and affect anxiousl. NEUROLOGICAL: Cranial nerves grossly intact; no facial asymmetry, power and sensation grossly intact. LYMPHATICS: No lymph nodes palpable in the axilla and neck INVESTIGATIONS, reviewed in the clinical context: White count 2.8, hemoglobin 12.5, platelets 275, potassium 4.0, bun 11, creatinine 0.62 AST 95, ALP 76. Influenza type A detected. Chest x-ray film personally reviewed by [id number] infiltrate Assessment: -Acute influenza infection with pneumonitis. Given that patient getting chemotherapy. 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 Questions were answered. Home medications resumed. Lovenox for DVT prophylaxis. IV fluids. Patient to continue on Tamiflu. We'll also add Zosyn empirically. We'll check a pro calcitonin. Also had albuterol nebulizer and Claritin-D. Past Medical History Past Medical History: Cancer, Thyroid Disorder Additional Past Medical History / Comment(s): breast ca - dx 2009 mets to the liver. confirmed by liver biopsy 2014 since then the mass has grown 3x. History of Any Multi-Drug Resistant Organisms: None Reported Past Surgical History: Breast Surgery Additional Past Surgical History / Comment(s): bilateral mastectomy - surgery, chemo, radiation - breast Ca on left side; LEFT FOOT SURGERY; BILAT HAND SURGERY; CATARACTS REMOVED. Past Anesthesia/Blood Transfusion Reactions: No Reported Reaction Past Psychological History: No Psychological Hx Reported Additional Psychological History / Comment(s): . Smoking Status: Never smoker Past Alcohol Use History: None Reported Past Drug Use History: None Reported - Past Family History Sister(s) Family Medical History: Cancer Additional Family Medical History / Comment(s): lung ca, 2009 Medications and Allergies Home Medications Medication Instructions Recorded Confirmed Type ALPRAZolam [Xanax] 0.5 mg PO TID PRN 10/21/19 10/21/19 History Apixaban [Eliquis] 5 mg PO BID 10/21/19 10/21/19 History HYDROcodone/APAP 7.5-325MG [[place] 1 tab PO Q4H PRN 10/21/19 10/21/19 History 7.5-325] Ibuprofen [Motrin Ib] 600 mg PO Q6H PRN 10/21/19 10/21/19 History Ondansetron Odt [Zofran Odt] 8 mg PO Q8HR PRN 10/21/19 10/21/19 History Pregabalin 75 mg PO BID 10/21/19 10/21/19 History Allergies Allergy/AdvReac Type Severity Reaction Status Date / Time No Known Allergies Allergy Verified 10/21/19 10:35 Physical Exam Vitals: Vital Signs Temp Pulse Pulse Resp BP BP Pulse Ox 10/21/19 01:17 98.2 F 100 14 163/76 96 10/21/19 00:00 100 16 10/20/19 22:26 89 16 137/86 99 10/20/19 21:50 96 10/20/19 21:00 85 16 124/76 99 10/20/19 19:36 99.4 F 101 H 22 147/79 97 Intake and Output 10/20/19 10/21/19 10/21/19 22:59 06:59 14:59 Intake Total 110 Balance 110 Intake: Oral 110 Other: Voiding Method Toilet # Voids 3 Weight 89.267 kg 89.267 kg Results CBC & Chem 7: 10/20/19 20:00 10/20/19 20:00 Labs: Abnormal Lab Results - Last 24 Hours (Table) 10/20/19 10/20/19 10/20/19 Range/Units 20:00 20:00 20:00 WBC 2.8 L (3.8-10.6) k/uL RDW 17.2 H (11.5-15.5) % Lymphocytes # 0.5 L (1.0-4.8) k/uL Sodium 135 L (137-145) mmol/L AST 95 H (14-36) U/L ALT 76 H (4-34) U/L Alkaline Phosphatase 365 H (38-126) U/L Urine Appearance Cloudy H (Clear) Urine Protein Trace H (Negative) Ur Leukocyte Esterase Small H (Negative) Urine WBC 7 H (0-5) /hpf Ur Squamous Epith Cells 5 H (0-4) /hpf Urine Bacteria Occasional H (None) /hpf Urine Mucus Many H (None) /hpf Influenza Type A RNA (Not Detectd) 10/20/19 Range/Units 20:00 WBC (3.8-10.6) k/uL RDW (11.5-15.5) % Lymphocytes # (1.0-4.8) k/uL Sodium (137-145) mmol/L AST (14-36) U/L ALT (4-34) U/L Alkaline Phosphatase (38-126) U/L Urine Appearance (Clear) Urine Protein (Negative) Ur Leukocyte Esterase (Negative) Urine WBC (0-5) /hpf Ur Squamous Epith Cells (0-4) /hpf Urine Bacteria (None) /hpf Urine Mucus (None) /hpf Influenza Type A RNA Detected H (Not Detectd)
[2019-10-21] MEDS: PIPERACILLIN-TAZOBACTAM 3.375 GM in SODIUM CHLORIDE 0.9% 100 ML IVPB SCH (16:47)
[2019-10-21] MEDS: HYDROcodone/APAP 7.5-325MG 1 EACH TAB PO PRN (17:08)
[2019-10-21] MEDS: LORATADINE-PSEUDOEPH 5-120 MG 1 EACH TAB.ER.12H PO SCH ×2 (17:09→21:58)
[2019-10-21] MEDS: ALBUTEROL NEBULIZED 2.5 MG/3 ML INHALATION SCH ×2 (17:16→20:54)
[2019-10-22] MEDS: HYDROcodone/APAP 7.5-325MG 1 EACH TAB PO PRN ×2 (00:33→09:07)
[2019-10-22] MEDS: VANCOMYCIN 1,750 MG in SODIUM CHLORIDE 0.9% 500 ML 500 ML IVPB SCH ×2 (01:22→13:01)
[2019-10-22] MEDS: ALBUTEROL NEBULIZED 2.5 MG/3 ML INHALATION SCH ×3 (07:10→15:40)
[2019-10-22 07:55] VITALS: RESP 16
[2019-10-22 08:36] LABS: African American GFR (CKD) >90 (>60 ml/min/1.73 sqM); Non-African American GFR(CKD) >90 (>60 ml/min/1.73 sqM)
[2019-10-22] MEDS: LORATADINE-PSEUDOEPH 5-120 MG 1 EACH TAB.ER.12H PO SCH (09:09)
[2019-10-22] MEDS: OSELTAMIVIR 75 MG CAP PO SCH (09:09)
[2019-10-22] MEDS: PREGABALIN 75 MG CAP PO SCH (09:09)
[2019-10-22] MEDS: APIXABAN 5 MG TAB PO SCH (09:09)
[2019-10-22] MEDS: PIPERACILLIN-TAZOBACTAM 3.375 GM in SODIUM CHLORIDE 0.9% 100 ML IVPB SCH ×3 (09:09)
[2019-10-22 15:26] VITALS: BP 131/75; TEMP 97.7
--- NOTE | 2019-10-22 16:06 | P.CONS ---
History of Present Illness - Reason for Consult Consult date: 10/22/19 chemo pt Requesting physician: Vinay Moreno - Chief Complaint fever - History of Present Illness Mrs. Simms is a very pleasant 54-year-old female patient of Dr. Ardon with a long-standing history of metastatic breast cancer with numerous lines of therapy, including clinical trial in [place]. Patient is currently on . She contacted the service to the weekend with a T-max of 101.3 Fahrenheit, she was directed to the emergency department for further workup, she was found to have influenza A, chest x-ray was suspicious for possible pneumonia therefore, she was admitted. Patient is had a 1 and 1.1 Fahrenheit temperature on 10/20, none since, pancultures are negative thus far. In follow-up today patient is feeling pretty well, tolerating oral intake, no fevers, chills, nausea, oral irritation, she is coughing and expectorating occasionally, denies pleuritic type chest pain, palpitations, difficulty breathing, no diarrhea to report, bleeding, bruising, she has swelling on the left side (both upper and lower extremity, this is not new for her, maybe slightly worse with all the fluids she's been receiving inpatient. She is ambulating independently. Malignancy history:The patient was diagnosed with breast cancer in , received adjuvant treatment per B46 trial. She started tamoxifen in April 2011 after she completed adjuvant radiation therapy. She was stable on all f/u. Due to endometrial hyperplasia and the fact her estradiol, FSH/LH were consistent with post menopause, tamoxifen was discontinued in August 2014 and she started Femara. She had brain MRI on 11/06/2014 because of headaches which was negative for metastatic disease. CT scan of chest done on 11/11/14 revealed new liver lesion. CT scan of abdomen/pelvis done on 11/17/14 confirmed a solid 2.3x2.9cm right lobe lesion of the liver. U/S guided biopsy of the liver lesion done on 11/24/14 was positive for metastatic breast carcinoma, ER strongly positive,TN negative,HER2/MARGARETTE negative by FISH (2+by IHC). She started Ibrance/femara on 12/02/14. 11/16/15 f emara was discontinued due to joints pain and she started faslodex with ibrance. She did well until CT 02/27/17 revealed progression of liver lesions, started afinitor/aromasin 03/15/17. CT CAP 05/30/17 revealed evidence of disease progression in her liver. She was seen at [facility] phase I clinical trials, in the meantime, she started on Xeloda on 07/03/17. Did well until 05/03/18, CT revealed evidence of disease progression in her liver, Xeloda was discontinued. 05/16/18 U/S guided liver biopsy was positive for metastatic breast cancer,ER/TN+ and HER2/MARGARETTE negtaive, biopsy was sent to [facility]. She was referred to [facility], was initially enrolled on clinical trial with Pevonedistat/carbo/taxol, acheived a response, then was placed on clinical trial with [id number] (anti [id number]), she had significant eye toxicites and was taken off the study. CT CAP 10/22/18 at [facility], which revealed further disease progression in her liver. She started verzenio end of November 2018. Brain MRI on 12/10/18 was negative. 12/30 CT revealed significant progression of her liver lesions, bulky,small chelly hepatis and retroperitoneal nodes,verzenio was discontinued. 01/03/19, she started weekly taxol. She is s/p 5 cycles. Review of Systems 14 point review of systems is negative except as stated in HPI Past Medical History Past Medical History: Cancer, Thyroid Disorder Additional Past Medical History / Comment(s): breast ca - dx 2009 mets to the liver. confirmed by liver biopsy 2014 since then the mass has grown 3x. History of Any Multi-Drug Resistant Organisms: None Reported Past Surgical History: Breast Surgery Additional Past Surgical History / Comment(s): bilateral mastectomy - surgery, chemo, radiation - breast Ca on left side; LEFT FOOT SURGERY; BILAT HAND SURGERY; CATARACTS REMOVED. Past Anesthesia/Blood Transfusion Reactions: No Reported Reaction Past Psychological History: No Psychological Hx Reported Additional Psychological History / Comment(s): . Smoking Status: Never smoker Past Alcohol Use History: None Reported Past Drug Use History: None Reported - Past Family History Sister(s) Family Medical History: Cancer Additional Family Medical History / Comment(s): lung ca, 2009 Medications and Allergies Home Medications Medication Instructions Recorded Confirmed Type ALPRAZolam [Xanax] 0.5 mg PO TID PRN 10/21/19 10/21/19 History Apixaban [Eliquis] 5 mg PO BID 10/21/19 10/21/19 History HYDROcodone/APAP 7.5-325MG [[place] 1 tab PO Q4H PRN 10/21/19 10/21/19 History 7.5-325] Ibuprofen [Motrin Ib] 600 mg PO Q6H PRN 10/21/19 10/21/19 History Ondansetron Odt [Zofran ODT] 8 mg PO Q8HR PRN 10/21/19 10/21/19 History Pregabalin 75 mg PO BID 10/21/19 10/21/19 History Amoxicillin/Potassium Clav 1 tab PO Q12HR #10 tab 10/22/19 Rx [Augmentin 875-125 Tablet] Loratadine-Pseudoeph 5-120 mg 1 each PO Q12HR #10 tab.er.12h 10/22/19 Rx [Claritin-D 12 Hour] Oseltamivir [Tamiflu] 75 mg PO Q12HR #10 cap 10/22/19 Rx Allergies Allergy/AdvReac Type Severity Reaction Status Date / Time No Known Allergies Allergy Verified 10/21/19 10:35 Physical Exam Vitals: Vital Signs Temp Pulse Pulse Resp BP Pulse Ox 10/22/19 07:25 97.9 F 80 85 16 128/79 98 10/22/19 07:12 86 10/22/19 07:05 97 14 10/22/19 01:25 98.2 F 97 14 137/77 94 L 10/22/19 00:00 15 10/21/19 21:06 84 10/21/19 20:54 80 10/21/19 20:00 96 15 10/21/19 19:05 98.7 F 96 15 118/63 96 10/21/19 17:27 82 10/21/19 17:16 84 96 10/21/19 16:00 89 16 10/21/19 15:00 98.4 F 89 16 121/81 98 10/21/19 14:13 99.4 F Intake and Output 10/21/19 10/22/19 10/22/19 22:59 06:59 14:59 Intake Total 800 1400 Balance 800 1400 Intake: Intake, IV Titration 800 1400 Amount Piperacillin-Tazobactam 3 100 .375 gm In Sodium Chloride 0.9% 100 ml @ 25 mls/hr IVPB Q8HR [facility] Rx# :[id number] Sodium Chloride 0.9% 1, 800 800 000 ml @ 100 mls/hr IV . Q10H [facility] Rx#:[id number] Vancomycin 1,750 mg In 500 Sodium Chloride 0.9% 500 ml 500 ml @ 167 mls/hr IVPB Q12H [facility] Rx#: [id number] Other: Voiding Method Toilet Toilet Toilet # Voids 1 2 2 - Constitutional General appearance: average body habitus, cooperative, no acute distress - EENT Eyes: anicteric sclerae, EOMI ENT: hearing grossly normal, normal oropharynx - Neck Neck: no lymphadenopathy - Respiratory Respiratory: bilateral: CTA - Cardiovascular Rhythm: regular Heart sounds: normal: S1, S2 Abnormal Heart Sounds: no systolic murmur, no diastolic murmur, no rub, no S3 Gallop, no S4 Gallop, no click, no other leg Peripheral Edema: right: Trace, left: 1+ - Gastrointestinal General gastrointestinal: no absent bowel sounds, no decreased bowel sounds, no distended, no hepatomegaly, no hyperactive bowel sounds, normal bowel sounds, no organomegaly, no rigid, no scaphoid, soft, no splenomegaly, no tenderness, no umbilical hernia, no ventral hernia - Neurologic Neurologic: CNII-XII intact - Musculoskeletal Musculoskeletal: strength equal bilaterally - Psychiatric Psychiatric: A&O x's 3, appropriate affect, intact judgment & insight Results CBC & Chem 7: 10/20/19 20:00 10/22/19 07:30 Labs: Microbiology - Last 24 Hours (Table) 10/20/19 20:00 Blood Culture - Preliminary Blood No Growth after 24 hours Chest x-ray: report reviewed Assessment and Plan (1) Fever Current Visit: Yes Status: Acute Priority: High Code(s): R50.9 - FEVER, UNSPECIFIED SNOMED Code(s): 125873359 (2) Influenza A Current Visit: Yes Status: Acute Priority: High Code(s): J10.1 - FLU DUE TO OTH IDENT INFLUENZA VIRUS W OTH RESP MANIFEST SNOMED Code(s): 021494216 (3) Right middle lobe pneumonia Current Visit: Yes Status: Chronic Priority: High Code(s): J18.9 - PN EUMONIA, UNSPECIFIED ORGANISM SNOMED Code(s): 092974185 (4) Metastatic breast cancer Narrative/Plan: Patient most recently on [place]. She has been overall very well with treatment, minor side effects complaints, no hematological toxicities. Plan will be to continue treatment as scheduled, no dose reductions. Current Visit: No Status: Chronic Priority: Medium Code(s): C50.919 - MALIGNANT NEOPLASM OF UNSP SITE OF UNSPECIFIED FEMALE BREAST SNOMED Code(s): 577073715 Plan: Mild leukopenia with normal absolute neutrophil count. No acute intervention, no gross factors needed. Patient has been afebrile for 24 hours, cultures are all negative. Patient is feeling better. She is okay from a Hematology/Oncology standpoint to be discharged once she has been cleared by Internal Medicine and consulting Physicians. Patient will keep her appointments as scheduled for treatment and follow-ups with primary Oncologist Dr. Ardon.
[2019-10-22 16:51] VITALS: PULSE 78
--- NOTE | 2019-10-23 00:03 | P.DS ---
Providers Date of admission: 10/22/19 11:43 Expected date of discharge: 10/22/19 Attending physician: Vinay Moreno Consults: 10/21/19 11:33 Consult Physician Routine Consulting Provider: Dina Ardon Consult Reason/Comments: chemo patient Do you want consulting provider notified?: Yes Primary care physician: Ronal Patel [facility] Course: Chief Complaint: Fever congestion History of presenting complaint: This is a very pleasant 54-year-old patient of . Patient has been diagnosed with breast cancer with bilateral mastectomy. She has received surgery, radiation treatment and gets chemotherapy every month. She gets it for 3 weeks then she is off for a week. She's been followed by Dr. Carlin. Patient's chronic stable medical conditions include anxiety, peripheral neuropathy, and has got chronic problem embolism 6 months ago for which she is on atelectasis. About 3 days ago patient started up in off congestion. Some clear sputum and a fever up to 1.2. Feels a bit tired. No change in bowel habits. Has been eating okay, just very congested, no achiness in the muscles. Presented to the ER. Tested positive for fluid. Started on Tamiflu Admitted with influenza a pneumonitis. Questionable secondary bacterial infection. Patient was treated with Tamiflu and IV Zosyn. Also responded well to Claritin-D. Today-feeling much better. Symptoms greatly improved. Starting a diet. No fever . Up and about. Care was discussed with the patient. Chief Of Safety And Protection: Dr. Desouza from oncology Physical examination: VITAL SIGNS: 97.7, 78, 16, blood pressure 131/75, 96% on room air GENERAL: BMI 30.8, laying in bed, tired, sounding congested. EYES: Pupils equal. Conjunctiva normal. HEENT: External appearance of nose and ears normal, oral cavity grossly normal. NECK: JVD not raised; masses not palpable. HEART: First and second heart sounds are normal; no edema. LUNGS: Respiratory rate normal, fair air entry. ABDOMEN: Soft, nontender, liver spleen not palpable, no masses palpable. PSYCH: Alert and oriented x3; mood and affect anxiousl. INVESTIGATIONS, reviewed in the clinical context: White count 2.8, hemoglobin 12.5, platelets 275, potassium 4.0, bun 11, creatinine 0.62 AST 95, ALP 76. Influenza type A detected. Chest x-ray film personally reviewed by [id number] infiltrate Assessment: -Acute influenza infection with pneumonitis. Given that patient getting chemotherapy. 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 -Chronic pulmonary embolism for which patient is an eliquis Disposition: Home Patient Condition at Discharge: Stable Plan - Discharge Summary Discharge Rx Participant: Yes New Discharge Prescriptions: New Amoxicillin/Potassium Clav [Augmentin 875-125 Tablet] 1 tab PO Q12HR #10 tab Loratadine-Pseudoeph 5-120 mg [Claritin-D 12 Hour] 1 each PO Q12HR #10 tab.er.12h Oseltamivir [Tamiflu] 75 mg PO Q12HR #10 cap Continue Ibuprofen [Motrin Ib] 600 mg PO Q6H PRN PRN Reason: Pain Pregabalin 75 mg PO BID HYDROcodone/APAP 7.5-325MG [[place] 7.5-325] 1 tab PO Q4H PRN PRN Reason: Pain Apixaban [Eliquis] 5 mg PO BID ALPRAZolam [Xanax] 0.5 mg PO TID PRN PRN Reason: Anxiety Ondansetron Odt [Zofran ODT] 8 mg PO Q8HR PRN PRN Reason: Nausea Discharge Medication List ALPRAZolam [Xanax] 0.5 mg PO TID PRN 10/21/19 [History] Apixaban [Eliquis] 5 mg PO BID 10/21/19 [History] HYDROcodone/APAP 7.5-325MG [[place] 7.5-325] 1 tab PO Q4H PRN 10/21/19 [History] Ibuprofen [Motrin Ib] 600 mg PO Q6H PRN 10/21/19 [History] Ondansetron Odt [Zofran ODT] 8 mg PO Q8HR PRN 10/21/19 [History] Pregabalin 75 mg PO BID 10/21/19 [History] Amoxicillin/Potassium Clav [Augmentin 875-125 Tablet] 1 tab PO Q12HR #10 tab 10/22/19 [Rx] Loratadine-Pseudoeph 5-120 mg [Claritin-D 12 Hour] 1 each PO Q12HR #10 tab. er.12h 10/22/19 [Rx] Oseltamivir [Tamiflu] 75 mg PO Q12HR #10 cap 10/22/19 [Rx] Follow up Appointment(s)/Referral(s): Ronal Patel DO [Primary Care Provider] - 1-2 days (office busy. Please call to make appointment) Patient Instructions/Handouts: Viral Pneumonia (DC), Influenza (DC) Discharge Disposition: HOME SELF-CARE
[2019-10-23] MEDS ORDERED: VANCOMYCIN TROUGH DUE 1 EACH MISC MISCELLANE ONE (12:00)
== END 2019-10-22 18:43 | disposition home or self-care (01) | DRG 871 ==
LOC: EC 19:22 → 4SSUR 23:31 → OBSVTOIN 10-22 11:43
PROVIDERS: ADMIT Hospitalist; ATTEND Hospitalist
DX: A41.89 Other specified sepsis (principal); J10.00 Influenza due to other identified influenza virus with unspecified type of pneumonia; J18.9 Pneumonia, unspecified organism; C78.7 Secondary malignant neoplasm of liver and intrahepatic bile duct; I27.82 Chronic pulmonary embolism; G62.0 Drug-induced polyneuropathy; C50.912 Malignant neoplasm of unspecified site of left female breast; D72.819 Decreased white blood cell count, unspecified; T45.1X5A Adverse effect of antineoplastic and immunosuppressive drugs, initial encounter; E07.9 Disorder of thyroid, unspecified; F41.9 Anxiety disorder, unspecified; N85.00 Endometrial hyperplasia, unspecified; Z17.1 Estrogen receptor negative status [ER-]; Y95 Nosocomial condition; Z79.899 Other long term (current) drug therapy; Z79.01 Long term (current) use of anticoagulants; Z90.13 Acquired absence of bilateral breasts and nipples; Z92.21 Personal history of antineoplastic chemotherapy; Z92.3 Personal history of irradiation; Z98.42 Cataract extraction status, left eye; Z98.41 Cataract extraction status, right eye; Z98.890 Other specified postprocedural states; Z80.1 Family history of malignant neoplasm of trachea, bronchus and lung
CPT/HCPCS: 36415; 71046; 80053; 81001; 82565; 83605; 85025; 85610; 85730; 87040; 87070; 87205; 87502; 93005; 94640; 96361; 96365; 96375; 99285

== ENCOUNTER 2020-11-10 07:37 | Day surgery (SDC) | payer MEDICARE ==
[2020-11-10 08:54] LABS: Mean Platelet Volume 8.7; Platelet Count 300 k/uL (150-450)
[2020-11-10 08:59] LABS: Prothrombin Time 10.4 sec (9.0-12.0)
[2020-11-10 09:30] VITALS: BP 147/80; PULSE 67; RESP 16; TEMP 98.1
== END 2020-11-10 09:25 | disposition home or self-care (01) ==
LOC: RADPROMAIN 07:37
PROVIDERS: ATTEND Internal Medicine Hematology & Oncology
DX: K76.89 Other specified diseases of liver (principal); Z53.9 Procedure and treatment not carried out, unspecified reason
CPT/HCPCS: 36415; 47000; 76942; 85049; 85610

== ENCOUNTER 2020-11-12 08:03 | Day surgery (SDC) | payer MEDICARE ==
[2020-11-12 08:21] VITALS: TEMP 97.4
[2020-11-12] MEDS ORDERED: HYDROmorphone 0.5 MG/0.5 ML SYRINGE IVP STA (09:33)
--- NOTE | 2020-11-12 10:42 | US ---
EXAMINATION TYPE: US biopsy liver DATE OF EXAM: 11/12/2020 HISTORY: Left lobe liver mass. FINDINGS: Maximal barrier technique was utilized. Hand hygiene achieved with soap and water and alco hol-based hand rub. The skin overlying a suitable path to the patient's mass in left lobe was localiz ed with ultrasound and the overlying skin prepped and draped. Ultrasound was utilized with sterile t echnique. Lidocaine was used for local anesthesia. A skin liane was made with a scalpel. An 18-gaug e needle was advanced under direct ultrasound guidance and core specimen obtained of the mass. Single pass was made. Specimen submitted in formalin to Pathology. Following the procedure, hemostasis ac hieved and the patient is discharged in stable condition without complication. IMPRESSION:STATUS POST ULTRASOUND GUIDED CORE BIOPSY OF left lobe liver MASS, PATHOLOGY IS PENDING. THIS PROCEDURE IS PERFORMED BY THE UNDERSIGNED.
[2020-11-12 11:47] VITALS: RESP 16
[2020-11-12 14:01] VITALS: BP 113/66; PULSE 68
== END 2020-11-12 13:53 | disposition home or self-care (01) ==
LOC: RADPROMAIN 08:03
PROVIDERS: ATTEND Internal Medicine Hematology & Oncology
DX: C78.7 Secondary malignant neoplasm of liver and intrahepatic bile duct (principal)
CPT/HCPCS: 88342; 88307; 88341; 47000; 76942; J1170

== ENCOUNTER → 2021-10-27 | Outpatient (CLI) | payer MEDICARE, OTHER ==
--- NOTE | 2021-10-27 14:29 | ECHOF ---
Referral Reason:Z01.818 Pre Chemo MEASUREMENTS -------- HEIGHT: 170.2 cm WEIGHT: 90.7 kg BP: 117/86 RVIDd: 3.0 cm (< 3.3) IVSd: 0.9 cm (0.6 - 1.1) LVIDd: 4.3 cm (3.9 - 5.3) LVPWd: 1.0 cm (0.6 - 1.1) IVSs: 1.5 cm LVIDs: 2.5 cm LVPWs: 1.5 cm LA Diam: 2.9 cm (2.7 - 3.8) LAESV Index (A-L): 23.28 ml/m Ao Diam: 2.9 cm (2.0 - 3.7) AV Cusp: 2.1 cm (1.5 - 2.6) MV EXCURSION: 13.243 mm (> 18.000) MV EF SLOPE: 41 mm/s (70 - 150) EPSS: 1.3 cm MV E Lonny: 0.81 m/s MV DecT: 251 ms MV A Lonny: 0.68 m/s MV E/A Ratio: 1.20 AR PHT: 1043 ms RAP: 5.00 mmHg RVSP: 28.09 mmHg FINDINGS -------- Sinus rhythm. This was a technically adequate study. The left ventricular size is normal. Left ventricular wall thickness is normal. Overall left vent ricular systolic function is normal with, an EF between 55 - 60 %. The right ventricle is normal in size. Normal LA size by volume 22+/-6 ml/m2. The right atrium is normal in size. Interatrial and interventricular septum intact. There is mild aortic regurgitation. Mild mitral regurgitation is present. Mild tricuspid regurgitation present. Right ventricular systolic pressure is normal at < 35 mmHg. The pulmonic valve was not well visualized. The aortic root size is normal. Normal inferior vena cava with normal inspiratory collapse consistent with estimated right atrial pre ssure of 5 mmHg. There is no pericardial effusion. CONCLUSIONS -------- 1. The left ventricular size is normal. 2. Left ventricular wall thickness is normal. 3. Overall left ventricular systolic function is normal with, an EF between 55 - 60 %. 4. There is mild aortic regurgitation. 5. Mild mitral regurgitation is present. 6. Mild tricuspid regurgitation present. 7. There is no pericardial effusion. CANDY CUTTER MACHINE: KODY Hooper
== END | disposition home or self-care (01) ==
LOC: RADECHMAIN 10:41
PROVIDERS: ATTEND Internal Medicine Hematology & Oncology
DX: Z01.818 Encounter for other preprocedural examination (principal); I08.3 Combined rheumatic disorders of mitral, aortic and tricuspid valves
CPT/HCPCS: 93306

== ENCOUNTER → 2021-12-28 | Outpatient (CLI) | payer MEDICARE, OTHER ==
--- NOTE | 2021-12-28 09:18 | US ---
EXAMINATION TYPE: US abdomen limited DATE OF EXAM: 12/28/2021 COMPARISON: None HISTORY: Primary osteoarthritis left shoulder CT DLP: 673.3 mGycm Automated exposure control for dose reduction was used. Contrast: None Technique: Axial images 2 mm thick sections. Reconstructed images in the coronal and sagittal plane. Three-D reconstructed images performed by the technologist on a separate computer are reviewed. FINDINGS: No acute fractures are evident. There is mild hypertrophy of the acromioclavicular junction. Inferior spurring is not identified. There is complete loss of the glenohumeral junction. Vacuum joint space is present. There is advanced degenerative change and remodeling of the humeral head and glenoid. Osseous spurring is present. No free fragments are identified. Three-D reconstructed images demonstrate advanced degenerative change. Acromiohumeral space appears p reserved. Soft tissues are normal. Small portion of the lung field within the field of view appears unremarkabl e. IMPRESSION: 1. ADVANCED DEGENERATIVE JOINT CHANGES LEFT GLENOHUMERAL JUNCTION.
== END | disposition home or self-care (01) ==
LOC: RADUSWWP 08:01
PROVIDERS: ATTEND Internal Medicine Hematology & Oncology
DX: M19.012 Primary osteoarthritis, left shoulder (principal)
CPT/HCPCS: 76705

== ENCOUNTER 2022-01-03 08:52 | Day surgery (SDC) | payer MEDICARE, OTHER ==
[2022-01-03 09:21] LABS: Mean Platelet Volume 10.2; Platelet Count 291 k/uL (150-450)
[2022-01-03 09:35] LABS: INR 1.1 (<1.2); Prothrombin Time 11.3 sec (9.0-12.0)
[2022-01-03 09:45] VITALS: TEMP 98.1
[2022-01-03] MEDS ORDERED: LIDOCAINE 1% PF 10 MG/ML (5 ML AMP) SQ ONE (11:11)
[2022-01-03 11:43] VITALS: BP 117/63; PULSE 66; RESP 20
--- NOTE | 2022-01-03 13:02 | US ---
EXAMINATION TYPE: US paracentesis abd w/image DATE OF EXAM: 01/03/2022 COMPARISON: NONE HISTORY: Ascites. PROCEDURE: Maximal barrier technique was utilized. The skin overlying a suitable pocket of fluid was localized with ultrasound and the overlying skin was prepped and draped. Ultrasound was utilized with sterile technique. Lidocaine was used for local anesthesia and a skin liane made with a scalpel. Catheter was advanced under direct ultrasound guidance into a suitable pocket of fluid and approximately 3.5 liter s of clear yellow fluid were removed. Catheter was withdrawn and hemostasis achieved. There is no i mmediate complication; the patient is discharged in stable condition. IMPRESSION: STATUS POST ULTRASOUND GUIDED PARACENTESIS FOR PALLIATION OF ASCITES. THIS PROCEDURE WA S PERFORMED BY THE UNDERSIGNED.
== END 2022-01-03 11:40 | disposition home or self-care (01) ==
LOC: RADPROMAIN 08:52
PROVIDERS: ATTEND Internal Medicine Hematology & Oncology
DX: R18.8 Other ascites (principal)
CPT/HCPCS: 88108; 88305; 85049; 85610; 88342; 88341; 36415; 49083; J2001

== ENCOUNTER 2022-01-13 12:55 | Day surgery (SDC) | payer MEDICARE, OTHER ==
[2022-01-13 13:28] LABS: Mean Platelet Volume 10.9; Platelet Count 161 k/uL (150-450)
[2022-01-13 13:41] LABS: INR 1.2 (<1.2); Prothrombin Time 12.7 sec (9.0-12.0)
[2022-01-13 13:43] VITALS: RESP 16; TEMP 98.3
[2022-01-13] MEDS ORDERED: LIDOCAINE 1% PF 10 MG/ML (5 ML AMP) SQ ONE (14:15)
[2022-01-13 15:13] VITALS: PULSE 98
[2022-01-13 15:16] VITALS: BP 105/66
--- NOTE | 2022-01-14 19:52 | US ---
Ultrasound-guided paracentesis. DATE OF EXAM: 01/13/2022 CLINICAL HISTORY: Ascites The procedure was discussed with the patient. The risks, complications, benefits, and alternatives we re discussed and any questions were answered. Informed consent was obtained. The patient was placed s upine on the ultrasound table and prepped and draped in the usual sterile fashion. All elements of maximal barrier technique were utilized. Under ultrasound guidance, access into the left lower quadrant was obtained, via the paracentesis catheter system and direct ultrasound guidance . Approximately 3.5 liters of straw-colored fluid was removed. The patient was stable throughout the pr ocedure and remained stable upon discharge from Department of Radiology. IMPRESSION: Successful paracentesis under ultrasound guidance.
== END 2022-01-13 15:11 | disposition home or self-care (01) ==
LOC: RADPROMAIN 12:55
PROVIDERS: ATTEND Internal Medicine Hematology & Oncology
DX: R18.8 Other ascites (principal)
CPT/HCPCS: 49083; 85049; 85610; J2001; J1642; 86850; 86900; 86901; 86920

== ENCOUNTER 2022-01-25 08:40 | Day surgery (SDC) | payer MEDICARE, OTHER ==
[2022-01-25 09:34] LABS: Mean Platelet Volume 10.1
[2022-01-25 09:38] VITALS: RESP 16; TEMP 98
[2022-01-25 09:42] LABS: INR 1.1 (<1.2); Prothrombin Time 12.2 sec (9.0-12.0)
[2022-01-25 09:46] LABS: Platelet Count 362 k/uL (150-450)
[2022-01-25] MEDS ORDERED: LIDOCAINE 1% PF 10 MG/ML (5 ML AMP) SQ ONE (10:17)
[2022-01-25 11:52] VITALS: BP 115/69; PULSE 74
--- NOTE | 2022-01-25 13:25 | US ---
EXAMINATION TYPE: US paracentesis abd w/image DATE OF EXAM: 01/25/2022 COMPARISON: NONE HISTORY: Ascites. PROCEDURE: Maximal barrier technique was utilized. The skin overlying a suitable pocket of fluid was localized with ultrasound and the overlying skin was prepped and draped. Ultrasound was utilized with sterile technique. Lidocaine was used for local anesthesia and a skin liane made with a scalpel. Catheter was advanced under direct ultrasound guidance into a suitable pocket of fluid and approximately 6.6 liter s of serous fluid were removed. Catheter was withdrawn and hemostasis achieved. There is no immedia te complication; the patient is discharged in stable condition. IMPRESSION: STATUS POST ULTRASOUND GUIDED PARACENTESIS FOR PALLIATION OF ASCITES. THIS PROCEDURE WA S PERFORMED BY THE UNDERSIGNED. Specimen obtained for laboratory analysis.
== END 2022-01-25 11:49 | disposition home or self-care (01) ==
LOC: RADPROMAIN 08:40
PROVIDERS: ATTEND Internal Medicine Hematology & Oncology
DX: R18.8 Other ascites (principal)
CPT/HCPCS: 88108; 88305; 85049; 85610; 88342; 88341; 49083; J2001; J1642

== ENCOUNTER 2022-02-01 08:52 | Day surgery (SDC) | payer MEDICARE, OTHER ==
[2022-02-01 09:31] LABS: Mean Platelet Volume 10.6; Platelet Count 300 k/uL (150-450)
[2022-02-01 09:40] LABS: INR 1.2 (<1.2); Prothrombin Time 12.4 sec (9.0-12.0)
[2022-02-01 09:43] VITALS: RESP 16; TEMP 98
[2022-02-01] MEDS ORDERED: LIDOCAINE 1% PF 10 MG/ML (5 ML AMP) SQ ONE (10:09)
--- NOTE | 2022-02-01 10:44 | US ---
EXAMINATION TYPE: US venous doppler duplex LE BI DATE OF EXAM: 02/01/2022 10:31 AM COMPARISON: Venous Doppler study dated 04/02/2019 CLINICAL HISTORY: Bilateral doppler LE. Leg swelling SIDE PERFORMED: Bilateral TECHNIQUE: The lower extremity deep venous system is examined utilizing real time linear array sonog nilsa with graded compression, doppler sonography and color-flow sonography. VESSELS IMAGED: Common Femoral Vein Deep Femoral Vein Superior aspect of the Greater Saphenous Vein * Femoral Vein Popliteal Vein Proximal Calf Veins (* superficial vessels) Right Leg: Negative for DVT Left Leg: Negative for DVT IMPRESSION: No evidence of DVT of the lower extremities from the groin down to the upper calf bilater ally.
--- NOTE | 2022-02-01 10:54 | US ---
EXAMINATION TYPE: US liver DATE OF EXAM: 02/01/2022 COMPARISON: EXAMINATION TYPE: US liver DATE OF EXAM: 02/01/2022 COMPARISON: Outside CT, dated 10/22/2021 CLINICAL HISTORY: Received faxed order for liver mass biopsy. Evaluate liver for possible liver biops y EXAM MEASUREMENTS: Liver Length: 18.3 cm CBD: 0.4 cm Right Kidney: 9.5 x 4.9 x 4.6 cm Pancreas: Unable to visualize due to ascites and abnormal liver Liver: Lobulated, heterogeneous, possible vague mass right/lateral lobe= 6.6 cm, liver very difficul t to visualize due to ascites, and visualized mostly intercostally Gallbladder: Unable to visualize Evidence for sonographic Vazquez's sign: No CBD: wnl Right Kidney: No evidence of hydro, lower pole gassed out IMPRESSION: Ascites. Nodular contour of the liver is again seen. There are limitations to the exam.
[2022-02-01] MEDS ORDERED: HYDROmorphone 0.5 MG/0.5 ML SYRINGE IVP STA (12:11)
--- NOTE | 2022-02-01 13:18 | P.PCN ---
Date of Procedure: 02/01/22 Preoperative Diagnosis: liver mets Postoperative Diagnosis: breast ca and liver mets Procedure(s) Performed: u/s liver core biopsy Anesthesia: local Estimated Blood Loss (ml): 5 Pathology: other (core biopsy) Condition: stable Disposition: observation Indications for Procedure: receptor status Operative Findings: 1 pass 18 ga left lobe liver biopsy
--- NOTE | 2022-02-01 13:41 | US ---
EXAMINATION TYPE: US biopsy liver DATE OF EXAM: 02/01/2022 HISTORY: Breast cancer and liver masses. FINDINGS: Maximal barrier technique was utilized. Hand hygiene achieved with soap and water and alco hol-based hand rub. The skin overlying a suitable path to the patient's mass in the left lobe liver w as localized with ultrasound and the overlying skin prepped and draped. Ultrasound was utilized with sterile technique. Lidocaine was used for local anesthesia. A skin liane was made with a scalpel. An 18-gauge needle was advanced under direct ultrasound guidance and core specimen obtained of the vincent ryan. Specimen submitted in formalin to Pathology. Following the procedure, hemostasis achieved and th e patient is discharged in stable condition without complication. IMPRESSION:STATUS POST ULTRASOUND GUIDED CORE BIOPSY OF left lobe liver MASS, PATHOLOGY IS PENDING. THIS PROCEDURE IS PERFORMED BY THE UNDERSIGNED.
--- NOTE | 2022-02-01 13:58 | US ---
EXAMINATION TYPE: US paracentesis abd w/image DATE OF EXAM: 02/01/2022 COMPARISON: NONE HISTORY: Ascites. PROCEDURE: Maximal barrier technique was utilized. The skin overlying a suitable pocket of fluid was localized with ultrasound and the overlying skin was prepped and draped. Ultrasound was utilized with sterile technique. Lidocaine was used for local anesthesia and a skin liane made with a scalpel. Catheter was advanced under direct ultrasound guidance into a suitable pocket of fluid and approximately 7 liters of ascitic fluid were removed. Catheter was withdrawn and hemostasis achieved. There is no immediat e complication; the patient is discharged in stable condition. IMPRESSION: STATUS POST ULTRASOUND GUIDED PARACENTESIS FOR PALLIATION OF ASCITES. THIS PROCEDURE WA S PERFORMED BY THE UNDERSIGNED.
[2022-02-01 16:15] VITALS: BP 99/65; PULSE 68
== END 2022-02-01 16:03 | disposition home or self-care (01) ==
LOC: RADPROMAIN 08:52
PROVIDERS: ATTEND Internal Medicine Hematology & Oncology
DX: R18.8 Other ascites (principal)
CPT/HCPCS: 85049; 85610; 88342; 88307; 88341; 96374; 47000; 76942; 49083; 76705; 93970; J2001; J1642; J1170; 10005

== ENCOUNTER 2022-02-08 07:35 | Day surgery (SDC) | payer MEDICARE, OTHER ==
[2022-02-08 08:41] LABS: Mean Platelet Volume 10.7; Platelet Count 377 k/uL (150-450)
[2022-02-08] MEDS ORDERED: ALBUMIN HUMAN 25% 50 ML in EMPTY BAG 1 BAG IVPB ONE (08:44)
[2022-02-08 08:48] LABS: INR 1.1 (<1.2); Prothrombin Time 11.8 sec (9.0-12.0)
[2022-02-08 09:05] VITALS: RESP 16; TEMP 97.9
[2022-02-08] MEDS ORDERED: LIDOCAINE 1% PF 10 MG/ML (5 ML AMP) SQ ONE (09:21)
[2022-02-08 10:23] VITALS: BP 105/61; PULSE 79
--- NOTE | 2022-02-08 11:31 | US ---
Ultrasound-guided paracentesis. DATE OF EXAM: 02/08/2022 CLINICAL HISTORY: Ascites The procedure was discussed with the patient. The risks, complications, benefits, and alternatives we re discussed and any questions were answered. Informed consent was obtained. The patient was placed s upine on the ultrasound table and prepped and draped in the usual sterile fashion. All elements of maximal barrier technique were utilized. Under ultrasound guidance, access into the right lower quadrant was obtained, via the paracentesis catheter system and direct ultrasound guidanc e. Approximately 4.7 liters of straw-colored fluid was removed. The patient was stable throughout the pr ocedure and remained stable upon discharge from Department of Radiology. IMPRESSION: Successful paracentesis under ultrasound guidance.
== END 2022-02-08 10:25 | disposition home or self-care (01) ==
LOC: RADPROMAIN 07:35
PROVIDERS: ATTEND Internal Medicine Hematology & Oncology
DX: R18.8 Other ascites (principal)
CPT/HCPCS: 85049; 85610; 49083; J2001; P9047; J1642

== ENCOUNTER 2022-02-15 07:40 | Day surgery (SDC) | payer MEDICARE, OTHER ==
[2022-02-15] MEDS ORDERED: ALBUMIN HUMAN 25% 50 ML in EMPTY BAG 1 BAG IVPB ONE (08:18)
[2022-02-15 08:28] VITALS: RESP 16; TEMP 97.5
[2022-02-15 08:38] LABS: Platelet Count 375 k/uL (150-450)
[2022-02-15 08:43] LABS: INR 1.3 (<1.2); Prothrombin Time 13.2 sec (9.0-12.0)
[2022-02-15 10:20] VITALS: BP 102/68; PULSE 84
--- NOTE | 2022-02-15 10:53 | US ---
EXAMINATION TYPE: US paracentesis abd w/image DATE OF EXAM: 02/15/2022 COMPARISON: NONE HISTORY: Ascites. PROCEDURE: Maximal barrier technique was utilized. The skin overlying a suitable pocket of fluid was localized with ultrasound and the overlying skin was prepped and draped. Ultrasound was utilized with sterile technique. Lidocaine was used for local anesthesia and a skin liane made with a scalpel. Catheter was advanced under direct ultrasound guidance into a suitable pocket of fluid and approximately 7.3 liter s of serous fluid were removed. Catheter was withdrawn and hemostasis achieved. There is no immedia te complication; the patient is discharged in stable condition. IMPRESSION: STATUS POST ULTRASOUND GUIDED PARACENTESIS FOR PALLIATION OF ASCITES. THIS PROCEDURE WA S PERFORMED BY THE UNDERSIGNED.
== END 2022-02-15 10:40 | disposition home or self-care (01) ==
LOC: RADPROMAIN 07:40
PROVIDERS: ATTEND Internal Medicine Hematology & Oncology
DX: R18.8 Other ascites (principal); E86.1 Hypovolemia; C50.112 Malignant neoplasm of central portion of left female breast
CPT/HCPCS: 85049; 85610; 49083; P9047

== ENCOUNTER 2022-02-22 07:29 | Day surgery (SDC) | payer MEDICARE, OTHER ==
[2022-02-22] MEDS ORDERED: ALBUMIN HUMAN 25% 50 ML in EMPTY BAG 1 BAG IVPB ONE (08:00)
[2022-02-22 08:35] LABS: Mean Platelet Volume 11.1; Platelet Count 380 k/uL (150-450)
[2022-02-22 08:40] VITALS: RESP 14; TEMP 97.8
[2022-02-22 08:47] LABS: INR 1.1 (<1.2); Prothrombin Time 12.1 sec (9.0-12.0)
[2022-02-22] MEDS ORDERED: LIDOCAINE 1% PF 10 MG/ML (5 ML AMP) SQ ONE (09:40)
[2022-02-22 11:13] VITALS: BP 92/52; PULSE 92
--- NOTE | 2022-02-22 12:49 | US ---
EXAMINATION TYPE: US paracentesis abd w/image DATE OF EXAM: 02/22/2022 COMPARISON: NONE HISTORY: Ascites. PROCEDURE: Maximal barrier technique was utilized. The skin overlying a suitable pocket of fluid was localized with ultrasound and the overlying skin was prepped and draped. Ultrasound was utilized with sterile technique. Lidocaine was used for local anesthesia and a skin liane made with a scalpel. Catheter was advanced under direct ultrasound guidance into a suitable pocket of fluid and approximately 7.9 liter s of ascitic fluid were removed. Catheter was withdrawn and hemostasis achieved. There is no immedi ate complication; the patient is discharged in stable condition. IMPRESSION: STATUS POST ULTRASOUND GUIDED PARACENTESIS FOR PALLIATION OF ASCITES. THIS PROCEDURE WA S PERFORMED BY THE UNDERSIGNED.
== END 2022-02-22 10:58 | disposition home or self-care (01) ==
LOC: RADPROMAIN 07:29
PROVIDERS: ATTEND Internal Medicine Hematology & Oncology
DX: R18.8 Other ascites (principal); Z79.01 Long term (current) use of anticoagulants; Z79.899 Other long term (current) drug therapy; Z80.3 Family history of malignant neoplasm of breast; Z90.13 Acquired absence of bilateral breasts and nipples; Z92.21 Personal history of antineoplastic chemotherapy; Z80.1 Family history of malignant neoplasm of trachea, bronchus and lung
CPT/HCPCS: 80053; 85049; 85610; 49083; J2001; P9047